=== PATIENT | female | born 1945 | race Caucasian/White ===

== ENCOUNTER → 2018-09-17 08:32 | Outpatient (CLI) | payer MEDICARE, BC, SELFPAY ==
[2018-09-17 09:36] LABS: Add Manual Diff / Slide Review NO; Basophils Percent Auto 0.7 % (0-2); Eosinophils Percent Auto 2.3 % (2-4); Hematocrit 43.3 % (36-46); Hemoglobin 14.8 g/dL (12.0-16.0); Lymphocytes Percent Auto 28.1 % (25-40); Mean Corpuscular HGB Conc 34.3 % (30-36); Mean Corpuscular Hemoglobin 30.7 PG (26-34); Mean Corpuscular Volume 89.6 fL (80-100); Monocytes Percent Auto 8.5 % (3-14); Neutrophils Absolute Auto 5200 /uL (3000-5900); Neutrophils Percent Auto 60.4 % (50-75); Platelet Count 198 X10^3/uL (150-400); Red Blood Cell Count 4.83 X10^6/uL (4.0-5.2); Red Cell Distribution Width 13.8 % (11.6-14.8); White Blood Cell Count 8.7 X10^3/uL (4.5-11.0)
[2018-09-17 09:52] LABS: Hemoglobin A1C% w Est Avg Glu 9.6 % (4.0-6.0)
[2018-09-17 09:54] LABS: Alanine Aminotransferase 31 IU/L (9-52); Albumin 4.5 g/dL (3.5-5.0); Albumin Globulin Ratio 1.6 (1.0-2.8); Alkaline Phosphatase 87 U/L (38-126); Aspartate Aminotransferase 25 IU/L (14-36); Bilirubin Total 0.5 mg/dL (0.2-1.3); Blood Urea Nitrogen 13 mg/dL (7-17); Calcium 9.3 mg/dL (8.4-10.2); Carbon Dioxide 24 mmol/L (22-32); Chloride 100 mmol/L (98-107); Cholesterol 204 mg/dL (140-199); Estimated Glomerular Filt Rate > 60.0 mL/min (>60); Globulin 2.9 g/dL (1.7-4.1); Glucose 272 mg/dL (80-110); HDL Cholesterol 34 mg/dL (40-60); HEMOLYSIS < 15 (0-50); LDL Cholesterol Calculated 107 mg/dL (<100); Sodium 139 mmol/L (137-145); Total Protein 7.4 g/dL (6.3-8.2); Triglycerides 317 mg/dL (35-150)
== END ==
PROVIDERS: PCP Family Medicine; Visit Provider Family Medicine
DX: E03.9 Hypothyroidism, unspecified (principal); E11.9 Type 2 diabetes mellitus without complications; E78.5 Hyperlipidemia, unspecified; I10 Essential (primary) hypertension
CPT/HCPCS: 36415; 80053; 80061; 83036; 84443; 85025

== ENCOUNTER → 2018-12-18 11:58 | Outpatient (CLI) | payer MEDICARE, BC, SELFPAY ==
--- NOTE | 2018-12-18 | DI.MG.S_ITS ---
BILATERAL DIGITAL SCREENING MAMMOGRAM 3D/2D WITH CAD: 12/18/2018 CLINICAL: Routine screening. Comparison is made to exams dated: 09/08/2017 mammogram, 06/10/2016 mammogram, and 03/07/2015 mammogram - [facility]. There are scattered fibroglandular elements in both breasts. Current study was also evaluated with a Computer Aided Detection (CAD) system. No significant masses, calcifications, or other findings are seen in either breast. There has been no significant interval change. IMPRESSION: NEGATIVE There is no mammographic evidence of malignancy. A 1 year screening mammogram is recommended. This exam was interpreted at Station ID: [id number]. NOTE: For mammograms, a report in lay terms will be sent to the patient. Approximately 15% of breast malignancies will not be visualized mammographically. In the management of a palpable breast mass, a negative mammogram must not discourage biopsy of a clinically suspicious lesion. Electronically Signed By: Cristian billings/radha:12/18/2018 16:54:35 copy to: Dread Menezes letter sent: Normal Exam ACR BI-RADS Category 1: Negative [id number]
== END ==
PROVIDERS: PCP Family Medicine; Visit Provider Family Medicine
DX: Z12.31 Encounter for screening mammogram for malignant neoplasm of breast (principal)
CPT/HCPCS: 77063; 77067

== ENCOUNTER → 2018-12-25 08:35 | Outpatient (CLI) | payer MEDICARE, BC, SELFPAY ==
[2018-12-25 09:45] LABS: Hemoglobin A1C% w Est Avg Glu 9.7 % (4.0-6.0)
[2018-12-25 09:51] LABS: Cholesterol 217 mg/dL (140-199); HDL Cholesterol 38 mg/dL (40-60); LDL Cholesterol Calculated 107 mg/dL (<100); Triglycerides 362 mg/dL (35-150)
== END ==
PROVIDERS: PCP Family Medicine; Visit Provider Family Medicine
DX: E11.9 Type 2 diabetes mellitus without complications (principal)
CPT/HCPCS: 36415; 80061; 83036

== ENCOUNTER → 2019-04-05 07:53 | Outpatient (CLI) | payer MEDICARE, BC, SELFPAY ==
[2019-04-05 09:29] LABS: Hemoglobin A1C% w Est Avg Glu 10.2 % (4.0-6.0)
[2019-04-05 09:35] LABS: Cholesterol 256 mg/dL (140-199); HDL Cholesterol 33 mg/dL (40-60); Triglycerides 420 mg/dL (35-150)
== END ==
PROVIDERS: PCP Family Medicine; Visit Provider Family Medicine
DX: E11.9 Type 2 diabetes mellitus without complications (principal)
CPT/HCPCS: 36415; 80061; 83036

== ENCOUNTER → 2019-07-14 07:45 | Outpatient (CLI) | payer MEDICARE, BC, SELFPAY ==
[2019-07-14 08:54] LABS: Hemoglobin A1C% w Est Avg Glu 9.4 % (4.0-6.0)
[2019-07-14 09:13] LABS: Blood Urea Nitrogen 11 mg/dL (7-17); Calcium 9.7 mg/dL (8.4-10.2); Carbon Dioxide 26 mmol/L (22-32); Chloride 99 mmol/L (98-107); Cholesterol 170 mg/dL (140-199); Estimated Glomerular Filt Rate > 60.0 mL/min (>60); Glucose 263 mg/dL (80-110); HDL Cholesterol 31 mg/dL (40-60); HEMOLYSIS < 15 (0-50); LDL Cholesterol Calculated 75 mg/dL (<100); Potassium 4.1 mmol/L (3.4-5.1); Sodium 137 mmol/L (137-145); Triglycerides 320 mg/dL (35-150)
== END ==
PROVIDERS: PCP Family Medicine; Visit Provider Family Medicine
DX: E11.9 Type 2 diabetes mellitus without complications (principal)
CPT/HCPCS: 36415; 80048; 80061; 83036

== ENCOUNTER → 2019-08-06 15:45 | Outpatient (CLI) | payer MEDICARE, BC, SELFPAY ==
--- NOTE | 2019-08-06 15:48 | DI.MRI.S_ITS ---
PROCEDURE: MR LUMBAR SPINE WO CON INDICATIONS: Low back pain TECHNIQUE: Noncontrast sagittal T1 spin echo and T2 fast echo, sagittal STIR, axial T1 and T2 fast spin echo through the lumbar spine. In cases with scoliosis, additional coronal T2 fast spin echo may be performed. COMPARISON: [facility], CR, ABDOMEN ACUTE SERIES, 05/14/2017, 10:33. [facility], MR, L-SPINE WITHOUT CONTRAST, 12/05/2015, 19:28. FINDINGS: Partially degraded by motion artifact. Image quality: Excellent. Alignment and Curvature: 5 lumbar type vertebral bodies are present via plain film. Bone Marrow: Marrow is of normal overall signal. No acute vertebral body compression fractures. Moderate reactive signal within the endplates adjacent to the L2-L3 and L3-L4 intervertebral discs. Mild reactive signal within the endplates adjacent to the L4-L5 and L5-S1 intervertebral discs. Spinal Cord: Conus medullaris terminates at the lower L1 level. Visualized cord demonstrates normal signal and size. Paraspinous Soft Tissues: No paravertebral masses. L1-L2: Mild disc height loss and desiccation. Mild diffuse disc bulge. Mild canal stenosis. No foraminal stenosis. No change. L2-L3: Severe disc height loss and desiccation. Moderate diffuse disc bulge with small superimposed broad based right far lateral protrusion/osteophyte. Moderate facet and ligamentum flavum hypertrophy. Mild epidural lipomatosis. Increased, severe canal stenosis. No change in mild right greater than left foraminal stenosis. L3-L4: Severe disc height loss and desiccation. Moderate diffuse disc bulge/osteophyte. Moderate facet and ligamentum flavum hypertrophy bilaterally. Increased, severe canal stenosis. No change in mild right and moderate left foraminal stenosis. L4-L5: Moderate disc height loss and desiccation. Moderate diffuse disc bulge. Moderate facet and ligamentum flavum hypertrophy. Mild epidural lipomatosis. Increased, severe canal stenosis. No change in mild bilateral foraminal stenosis. L5-S1: Moderate disc height loss and desiccation. Moderate diffuse disc bulge with superimposed left paracentral protrusion. Epidural lipomatosis. Increased, severe canal stenosis. No change in mild bilateral foraminal stenosis. IMPRESSION: 1. Multilevel degenerative disc and facet disease, as well as ligamentum flavum hypertrophy and epidural lipomatosis. 2. Multilevel canal stenoses, worst at L2-L3, L3-L4, L4-L5, and L5-S1, where there are increased, severe canal stenoses. 3. Multilevel foraminal stenoses, worst at L3-L4 on the left where there is moderate foraminal stenosis. Dictated by: Eric Georges M.D. on 08/06/2019 at 16:32 Approved by: Eric Georges M.D. on 08/06/2019 at 16:38
== END ==
PROVIDERS: PCP Family Medicine; Visit Provider Physical Medicine & Rehabilitation
DX: M54.5 Low back pain (principal); M51.36 Other intervertebral disc degeneration, lumbar region; M51.37 Other intervertebral disc degeneration, lumbosacral region; M48.061 Spinal stenosis, lumbar region without neurogenic claudication; M48.07 Spinal stenosis, lumbosacral region; E88.2 Lipomatosis, not elsewhere classified
CPT/HCPCS: 72148

== ENCOUNTER → 2019-12-06 08:11 | Outpatient (CLI) | payer MEDICARE, BC, SELFPAY ==
[2019-12-06 09:43] LABS: Alanine Aminotransferase 18 IU/L (<35); Albumin 4.7 g/dL (3.5-5.0); Albumin Globulin Ratio 1.4 (1.0-2.8); Alkaline Phosphatase 61 U/L (38-126); Aspartate Aminotransferase 25 IU/L (14-36); BUN Creatinine Ratio 31.7 (6-22); Bilirubin Total 0.6 mg/dL (0.2-1.3); Blood Urea Nitrogen 19 mg/dL (7-17); Calcium 9.9 mg/dL (8.4-10.2); Carbon Dioxide 27 mmol/L (22-32); Chloride 101 mmol/L (98-107); Estimated Glomerular Filt Rate > 60.0 mL/min (>60); Globulin 3.3 g/dL (1.7-4.1); Glucose 252 mg/dL (80-110); HEMOLYSIS < 15 (0-50); Potassium 4.4 mmol/L (3.4-5.1); Sodium 138 mmol/L (137-145)
[2019-12-06 09:47] LABS: Hemoglobin A1C% w Est Avg Glu 9.9 % (4.0-6.0)
== END ==
PROVIDERS: PCP Family Medicine; Visit Provider Family Medicine
DX: E11.9 Type 2 diabetes mellitus without complications (principal)
CPT/HCPCS: 36415; 80053; 83036

== ENCOUNTER → 2020-05-08 08:05 | Outpatient (CLI) | payer MEDICARE, BC, SELFPAY ==
[2020-05-08 09:59] LABS: Add Manual Diff / Slide Review NO; Basophils Absolute Auto 100 /uL (0-100); Basophils Percent Auto 0.7 % (0-2); Eosinophils Absolute Auto 200 /uL (0-450); Eosinophils Percent Auto 2.2 % (2-4); Hematocrit 41.9 % (36-46); Hemoglobin 14.6 g/dL (12.0-16.0); Lymphocytes Absolute Auto 2500 /uL (1100-4500); Mean Corpuscular HGB Conc 34.8 % (30-36); Mean Corpuscular Hemoglobin 31.5 PG (26-34); Mean Corpuscular Volume 90.4 fL (80-100); Monocytes Absolute Auto 700 /uL (0-900); Monocytes Percent Auto 8.5 % (3-14); Neutrophils Absolute Auto 4400 /uL (1500-7000); Neutrophils Percent Auto 56.6 % (50-75); Platelet Count 191 X10^3/uL (150-400); Red Blood Cell Count 4.63 X10^6/uL (4.0-5.2); Red Cell Distribution Width 13.9 % (11.6-14.8); White Blood Cell Count 7.8 X10^3/uL (4.5-11.0)
[2020-05-08 10:04] LABS: Hemoglobin A1C% w Est Avg Glu 9.3 % (4.0-6.0)
[2020-05-08 10:25] LABS: Alanine Aminotransferase 19 IU/L (<35); Albumin 4.1 g/dL (3.5-5.0); Albumin Globulin Ratio 1.4 (1.0-2.8); Alkaline Phosphatase 68 U/L (38-126); Aspartate Aminotransferase 25 IU/L (14-36); BUN Creatinine Ratio 21.7 (6-22); Bilirubin Total 0.5 mg/dL (0.2-1.3); Blood Urea Nitrogen 13 mg/dL (7-17); Calcium 9.5 mg/dL (8.4-10.2); Carbon Dioxide 23 mmol/L (22-32); Chloride 100 mmol/L (98-107); Cholesterol 183 mg/dL (140-199); Estimated Glomerular Filt Rate > 60.0 mL/min (>60); Glucose 268 mg/dL (80-110); HDL Cholesterol 32 mg/dL (40-60); HEMOLYSIS < 15 (0-50); LDL Cholesterol Calculated 81 mg/dL (<100); Potassium 4.1 mmol/L (3.4-5.1); Sodium 134 mmol/L (137-145); Total Protein 7.1 g/dL (6.3-8.2); Triglycerides 349 mg/dL (35-150)
[2020-05-08 10:49] LABS: Thyroid Stimulating Hormone 1.56 uIU/mL (0.47-4.68)
== END ==
PROVIDERS: PCP Family Medicine; Referring Provider Family Medicine; Visit Provider Family Medicine
DX: E11.9 Type 2 diabetes mellitus without complications (principal); E03.9 Hypothyroidism, unspecified
CPT/HCPCS: 36415; 80053; 80061; 83036; 84443; 85025

== ENCOUNTER → 2020-05-10 10:19 | Outpatient (CLI) | payer MEDICARE, BC, SELFPAY ==
[2020-05-10 12:58] LABS: Creatinine Urine Random 53.5 mg/dL
[2020-05-10 13:01] LABS: Microalbumi Creatinin Ratio Ur 11.2 ug/mg CR (<30); Microalbumin Urine Random < 0.6 mg/dL (0-1.6)
== END ==
PROVIDERS: PCP Family Medicine; Referring Provider Family Medicine; Visit Provider Family Medicine
DX: E11.9 Type 2 diabetes mellitus without complications (principal)
CPT/HCPCS: 82043; 82570

== ENCOUNTER → 2020-05-12 14:43 | Outpatient (CLI) | payer MEDICARE, BC, SELFPAY ==
--- NOTE | 2020-05-12 14:46 | DI.RAD.S_ITS ---
PROCEDURE: XR CHEST 2V INDICATIONS: Cough cough TECHNIQUE: 2 views of the chest were acquired. COMPARISON: [facility], , ABDOMEN ACUTE SERIES, 05/14/2017, 10:33. [facility], , CHEST 2 VIEW, 01/26/2016, 12:18. FINDINGS: Surgical changes and devices: None. Lungs and pleura: Scattered atelectasis. There are increased ill-defined subtle ground glass opacities bilaterally.. No pleural effusions or pneumothorax. Mediastinum: Mediastinal contours are normal. Heart size is normal. Bones and chest wall: No suspicious bony abnormalities. Soft tissues appear unremarkable. IMPRESSION: Diffuse increased bilateral patchy and ill-defined groundglass opacities raise the possibility of viral or atypical pneumonia. Please correlate clinically. No focal consolidation. Technically, mild pulmonary edema is in the differential. If there is persistent clinical diagnostic uncertainty, continued surveillance with short interval chest radiographs after treatment is recommended. Dictated by: Ruben Rios M.D. on 05/12/2020 at 15:51 Approved by: Ruben Rios M.D. on 05/12/2020 at 15:52
== END ==
PROVIDERS: PCP Family Medicine; Referring Provider Family Medicine; Visit Provider Family Medicine
DX: J40 Bronchitis, not specified as acute or chronic (principal); R05 Cough
CPT/HCPCS: 71046

== ENCOUNTER → 2020-05-14 11:13 | Outpatient (CLI) | payer MEDICARE, BC, SELFPAY ==
[2020-05-14 12:34] LABS: COVID19 -Nasal RAPID Negative (Negative)
== END ==
PROVIDERS: PCP Family Medicine; Visit Provider Physician Assistant
DX: Z11.59 Encounter for screening for other viral diseases (principal)
CPT/HCPCS: 87635

== ENCOUNTER → 2020-06-06 12:04 | Outpatient (CLI) | payer MEDICARE, BC, SELFPAY ==
--- NOTE | 2020-06-06 12:05 | DI.RAD.S_ITS ---
PROCEDURE: XR CHEST 2V INDICATIONS: Follow up TECHNIQUE: 2 views of the chest were acquired. COMPARISON: [facility], CR, XR CHEST 2V, 05/12/2020, 14:37. FINDINGS: Surgical changes and devices: Cholecystectomy clips. Lungs and pleura: Patchy, ill-defined ground-glass opacities and interstitial prominence involving the lungs as diminished compared to May 12, 2020 without complete resolution. No pleural effusions or pneumothorax. Mediastinum: Mediastinal contours are normal. Heart size is normal. Bones and chest wall: No suspicious bony abnormalities. Soft tissues appear unremarkable. IMPRESSION: Diminished bilateral ill-defined ground-glass opacities and interstitial prominence likely representing resolving viral or atypical pneumonia. Dictated by: Helena Yee MD, PhD on 06/06/2020 at 18:00 Approved by: Helena Yee MD, PhD on 06/06/2020 at 18:02
== END ==
PROVIDERS: PCP Family Medicine; Referring Provider Family Medicine; Visit Provider Family Medicine
DX: J40 Bronchitis, not specified as acute or chronic (principal); R07.89 Other chest pain
CPT/HCPCS: 71046

== ENCOUNTER → 2020-08-15 08:11 | Outpatient (CLI) | payer MEDICARE, BC, SELFPAY ==
[2020-08-15 09:58] LABS: BUN Creatinine Ratio 13.3 (6-22); Blood Urea Nitrogen 8 mg/dL (7-17); Calcium 9.3 mg/dL (8.4-10.2); Carbon Dioxide 26 mmol/L (22-32); Chloride 101 mmol/L (98-107); Estimated Glomerular Filt Rate > 60.0 mL/min (>60); Glucose 265 mg/dL (80-110); HEMOLYSIS < 15 (0-50); Potassium 4.6 mmol/L (3.4-5.1); Sodium 136 mmol/L (137-145)
[2020-08-15 10:52] LABS: Hemoglobin A1C% w Est Avg Glu 9.4 % (4.0-6.0)
== END ==
PROVIDERS: PCP Family Medicine; Referring Provider Family Medicine; Visit Provider Family Medicine
DX: E11.9 Type 2 diabetes mellitus without complications (principal)
CPT/HCPCS: 36415; 80048; 83036

== ENCOUNTER → 2020-08-28 10:00 | Outpatient (CLI) | payer MEDICARE, BC, SELFPAY ==
[2020-08-28 10:57] LABS: Bacteria Urine Many (>30); Culture Indicated Urine Cult Not Indicated; RBC Urine 1-5/HPF (0-5/HPF); Squamous Epithelial Cell Urine 5-10 /HPF (0-5/HPF); WBC Urine >100/HPF (0-5/HPF)
== END ==
PROVIDERS: PCP Family Medicine; Referring Provider Family Medicine; Visit Provider Family Medicine
DX: R10.9 Unspecified abdominal pain (principal); R30.0 Dysuria
CPT/HCPCS: 81015

== ENCOUNTER → 2020-10-24 08:15 | Outpatient (CLI) | payer MEDICARE, BC, SELFPAY ==
--- NOTE | 2020-10-24 08:17 | DI.RAD.S_ITS ---
PROCEDURE: XR CHEST 2V INDICATIONS: Follow-up cough TECHNIQUE: 2 views of the chest were acquired. COMPARISON: , CR, XR CHEST 2V, 05/12/2020, 14:37. , CR, XR CHEST 2V, 06/06/2020, 11:59. FINDINGS: Surgical changes and devices: None. Lungs and pleura: Mild interstitial infiltrates in the left lower lobe. No focal consolidation or pleural effusion. There is a 2 cm nodular density in the left lower lung zone seen on the frontal view only, new since 06/06/2020. No pleural effusions or pneumothorax. Mediastinum: Mediastinal contours are normal. Heart size is normal. Bones and chest wall: No suspicious bony abnormalities. Soft tissues appear unremarkable. IMPRESSION: 1. Infiltrate in the left lower lobe suspicious for developing pneumonia. 2. A 2 cm nodular density in the left lower lung zone seen on the frontal view only. This was not present on 06/06/2020. It may be caused by an artifact . Nevertheless, a short-term follow-up chest x-ray is suggested. Dictated by: Ro García M.D. on 10/24/2020 at 9:43 Approved by: Ro García M.D. on 10/24/2020 at 9:47
[2020-10-24 09:32] LABS: BUN Creatinine Ratio 23.6 (6-22); Blood Urea Nitrogen 13 mg/dL (7-17); Calcium 9.1 mg/dL (8.4-10.2); Carbon Dioxide 26 mmol/L (22-32); Chloride 103 mmol/L (98-107); Estimated Glomerular Filt Rate > 60.0 mL/min (>60); Glucose 228 mg/dL (80-110); HEMOLYSIS < 15 (0-50); Potassium 4.2 mmol/L (3.4-5.1); Sodium 136 mmol/L (137-145)
[2020-10-24 09:41] LABS: Hemoglobin A1C% w Est Avg Glu 9.4 % (4.0-6.0)
== END ==
PROVIDERS: PCP Family Medicine; Referring Provider Family Medicine; Visit Provider Family Medicine
DX: R05 Cough (principal); E11.9 Type 2 diabetes mellitus without complications
CPT/HCPCS: 36415; 71046; 80048; 83036

== ENCOUNTER → 2020-10-26 14:41 | Outpatient (CLI) | payer MEDICARE, BC, SELFPAY | PROVIDERS: PCP Family Medicine; Visit Provider Family Medicine | DX: Z87.440 Personal history of urinary (tract) infections (principal) | CPT/HCPCS: 87086 ==

== ENCOUNTER → 2020-12-14 12:32 | Outpatient (CLI) | payer MEDICARE, BC, SELFPAY ==
[2020-12-14] MEDS: COVID-19 VACC #1, MRNA(MOD) 100 MCG/0.5 ML VIAL IM (12:34)
== END ==
PROVIDERS: PCP Family Medicine; Visit Provider Internal Medicine
DX: Z23 Encounter for immunization (principal)
CPT/HCPCS: 0011A; 91301

== ENCOUNTER → 2020-12-19 15:21 | Outpatient (CLI) | payer MEDICARE, BC, SELFPAY | PROVIDERS: PCP Family Medicine; Visit Provider Specialist | DX: R30.0 Dysuria (principal) | CPT/HCPCS: 51701; 87086 ==

== ENCOUNTER → 2021-01-11 12:07 | Outpatient (CLI) | payer MEDICARE, BC, SELFPAY ==
[2021-01-11] MEDS: COVID-19 VACC #2, MRNA(MOD) 100 MCG/0.5 ML VIAL IM (12:16)
== END ==
PROVIDERS: PCP Family Medicine; Visit Provider Internal Medicine
DX: Z23 Encounter for immunization (principal)
CPT/HCPCS: 0012A; 91301

== ENCOUNTER → 2021-01-29 07:51 | Outpatient (CLI) | payer MEDICARE, BC, SELFPAY ==
[2021-01-29 08:36] LABS: Hemoglobin A1C% w Est Avg Glu 9.2 % (4.0-6.0)
[2021-01-29 08:47] LABS: Alanine Aminotransferase 23 IU/L (<35); Albumin 4.3 g/dL (3.5-5.0); Albumin Globulin Ratio 1.4 (1.0-2.8); Alkaline Phosphatase 90 U/L (38-126); Aspartate Aminotransferase 26 IU/L (14-36); BUN Creatinine Ratio 34.4 (6-22); Bilirubin Total 0.4 mg/dL (0.2-1.3); Blood Urea Nitrogen 21 mg/dL (7-17); Calcium 9.2 mg/dL (8.4-10.2); Carbon Dioxide 26 mmol/L (22-32); Chloride 101 mmol/L (98-107); Creatinine Urine Random 77.1 mg/dL; Estimated Glomerular Filt Rate > 60.0 mL/min (>60); Globulin 3.1 g/dL (1.7-4.1); Glucose 291 mg/dL (80-110); HEMOLYSIS < 15 (0-50); Potassium 4.4 mmol/L (3.4-5.1); Sodium 135 mmol/L (137-145); Total Protein 7.4 g/dL (6.3-8.2)
[2021-01-29 09:15] LABS: Microalbumi Creatinin Ratio Ur 46.6 ug/mg CR (<30); Microalbumin Urine Random < 3.6 mg/dL (0-1.6)
[2021-01-29 09:31] LABS: TSH w/ Reflex to FT4 1.77 uIU/mL (0.47-4.68)
== END ==
PROVIDERS: PCP Family Medicine; Referring Provider Family Medicine; Visit Provider Family Medicine
DX: E11.9 Type 2 diabetes mellitus without complications (principal); I10 Essential (primary) hypertension; Z79.4 Long term (current) use of insulin; E03.9 Hypothyroidism, unspecified
CPT/HCPCS: 36415; 80053; 82043; 82570; 83036; 84443

== ENCOUNTER → 2021-02-06 12:43 | Outpatient (CLI) | payer MEDICARE, BC, SELFPAY ==
--- NOTE | 2021-02-06 12:44 | DI.CT.S_ITS ---
PROCEDURE: CT CHEST WO CON INDICATIONS: Abnormal and persistent chest x-ray in former smoker TECHNIQUE: Noncontrast 5 mm thick sections acquired from the pulmonary apices to the posterior costophrenic angles. 1 mm lung window, 5 mm thick coronal and sagittal and 7 mm axial MIP reformats were then acquired. For radiation dose reduction, the following was used: automated exposure control, adjustment of mA and/or kV according to patient size. COMPARISON: [facility], CR, XR CHEST 2V, 06/06/2020, 11:59. [facility], CR, XR CHEST 2V, 05/12/2020, 14:37. [facility], CT, HEAD AND NECK ANGIO, 02/19/2016, 13:42. [facility], CR, XR CHEST 2V, 10/24/2020, 8:28. FINDINGS: Image quality: Excellent. Scattered subsegmental atelectasis and/or scarring. No focal consolidation. No pleural effusions or pneumothorax. Airway thickening in keeping with nonspecific bronchitis and/or reactive airways disease. 4 mm nodule seen in the subpleural left upper lobe posteriorly on image 43. This appears unchanged since 02/19/16. No definite correlate to the radiographic nodular opacity seen on the prior study from 10/24/20. Mediastinum: Heart size is normal. Coronary artery calcifications are present. No pericardial effusion. No mediastinal adenopathy by size criteria. Thoracic aorta and central pulmonary arteries are normal in size. Esophagus is normal in caliber. No hiatal hernia. Bones and chest wall: No suspicious bony lesions. No vertebral body compression fractures. No axillary or supraclavicular adenopathy by size criteria. Thyroid is grossly unremarkable Abdomen: Visualized upper abdominal solid organs and bowel loops appear normal in the absence of contrast. IMPRESSION: No definite correlate to the radiographically visualized nodular opacity seen on the prior study. Scattered subsegmental atelectasis and/or scarring. No focal consolidation. Additional chronic and incidental findings as above. Dictated by: Ruben Rios M.D. on 02/06/2021 at 15:17 Approved by: Ruben Rios M.D. on 02/06/2021 at 15:42
== END ==
PROVIDERS: PCP Family Medicine; Referring Provider Family Medicine; Visit Provider Family Medicine
DX: R93.89 Abnormal findings on diagnostic imaging of other specified body structures (principal); R91.1 Solitary pulmonary nodule; I25.10 Atherosclerotic heart disease of native coronary artery without angina pectoris; Z87.891 Personal history of nicotine dependence
CPT/HCPCS: 71250

== ENCOUNTER → 2021-03-22 16:18 | Outpatient (CLI) | payer MEDICARE, BC, SELFPAY ==
--- NOTE | 2021-03-22 | DI.MG.S_ITS ---
BILATERAL DIGITAL SCREENING MAMMOGRAM 3D/2D WITH CAD: 03/22/2021 CLINICAL: Routine screening. Comparison is made to exams dated: 12/18/2018 mammogram, 09/08/2017 mammogram, and 06/10/2016 mammogram - [facility]. There are scattered fibroglandular elements in both breasts. Current study was also evaluated with a Computer Aided Detection (CAD) system. There is an oval equal density focal asymmetry with an indistinct margin in the right breast at 11 o'clock anterior depth. There is an irregular low density asymmetry with an indistinct margin in the left breast posterior depth inferior region seen on the mediolateral oblique view only. No other significant masses or calcifications are seen in either breast. IMPRESSION: INCOMPLETE: NEEDS ADDITIONAL IMAGING EVALUATION The oval equal density focal asymmetry in the right breast at 11 o'clock anterior depth is indeterminate. Mediolateral and spot compression views as well as additional views with possible ultrasound are recommended. The irregular low density asymmetry in the left breast posterior depth inferior region seen on the mediolateral oblique view only is indeterminate. Mediolateral and spot compression views as well as additional views with possible ultrasound are recommended. This exam was interpreted at Station ID: [id number]. NOTE: For mammograms, a report in lay terms will be sent to the patient. Approximately 15% of breast malignancies will not be visualized mammographically. In the management of a palpable breast mass, a negative mammogram must not discourage biopsy of a clinically suspicious lesion. Electronically Signed By: Cristian billings/radha:03/22/2021 17:06:48 letter sent: Additional Imaging Needed ACR BI-RADS Category 0: Incomplete 3340F
== END ==
PROVIDERS: PCP Family Medicine; Referring Provider Family Medicine; Visit Provider Family Medicine
DX: Z12.31 Encounter for screening mammogram for malignant neoplasm of breast (principal)
CPT/HCPCS: 77063; 77067

== ENCOUNTER → 2021-04-04 09:19 | Outpatient (CLI) | payer MEDICARE, BC, SELFPAY ==
--- NOTE | 2021-04-04 09:20 | DI.US.S_ITS ---
ULTRASOUND OF RIGHT BREAST: 04/04/2021 CLINICAL: Patient returns today to evaluate a focal asymmetry in the right breast. Comparison is made to exams dated: 04/04/2021 mammogram, 03/22/2021 mammogram, 12/18/2018 mammogram, and 09/08/2017 mammogram - [facility]. Doppler ultrasound of the right breast was performed. Foster scale images of the real-time examination were reviewed. There is a 1.3 cm x 0.5 cm oval mass with an indistinct and non-circumscribed margin in the right breast at 9 o'clock posterior depth 4 cm from the nipple. This oval mass is hypoechoic with no posterior acoustic shadowing or enhancement. There also is a 0.7 cm x 0.8 cm x 0.5 cm oval mass with an indistinct and non-circumscribed margin in the right breast at 9 o'clock posterior depth 3 cm from the nipple. IMPRESSION: SUSPICIOUS OF MALIGNANCY The 1.3 cm x 0.5 cm oval mass in the right breast at 9 o'clock posterior depth is at a low suspicion for malignancy. An ultrasound guided biopsy is recommended. The 0.7 cm x 0.8 cm x 0.5 cm oval mass in the right breast at 9 o'clock posterior depth is at a low suspicion for malignancy. An ultrasound guided biopsy is recommended. These findings and recommendation were discussed with the patient by Dr Rios. This exam was interpreted at Station ID: [id number]. Electronically Signed By: Pierre Zamora acr/:04/04/2021 12:25:36 letter sent: Biopsy Required Ultrasound BI-RADS: 4a Low suspicion for malignancy
--- NOTE | 2021-04-04 09:35 | DI.MG.S_ITS ---
At the request of: HENRY VALENTINE Procedure: MM diagnostic mammo BI BILATERAL DIGITAL DIAGNOSTIC MAMMOGRAM 3D/2D WITH ADDITIONAL VIEWS: 04/04/2021 CLINICAL: Additional evaluation requested from prior study. Comparison is made to exams dated: 03/22/2021 mammogram, 12/18/2018 mammogram, and 09/08/2017 mammogram - [facility]. There are scattered fibroglandular elements in both breasts. There is an oval equal density focal asymmetry with an indistinct margin in the right breast at 11 o'clock anterior depth. This is seen in additional views. This is not significantly changed. The benign irregular low density asymmetry with an indistinct margin in the left breast posterior depth inferior region seen on the mediolateral oblique view only is no longer seen. This is not seen in additional views. No other significant masses or calcifications are seen in either breast. IMPRESSION: INCOMPLETE: NEEDS ADDITIONAL IMAGING EVALUATION The oval equal density focal asymmetry in the right breast at 11 o'clock anterior depth is indeterminate. An ultrasound is recommended. The left asymmetry resolves on additional views and is benign. This exam was interpreted at Station ID: [id number]. NOTE: For mammograms, a report in lay terms will be sent to the patient. Approximately 15% of breast malignancies will not be visualized mammographically. In the management of a palpable breast mass, a negative mammogram must not discourage biopsy of a clinically suspicious lesion. Electronically Signed By: Pierre Zamora acr/:04/04/2021 11:10:04 letter sent: Need Ultrasound ACR BI-RADS Category 0: Incomplete 3340F
== END ==
PROVIDERS: PCP Family Medicine; Referring Provider Family Medicine; Visit Provider Family Medicine
DX: R92.8 Other abnormal and inconclusive findings on diagnostic imaging of breast (principal); N63.15 Unspecified lump in the right breast, overlapping quadrants
CPT/HCPCS: 76642; 77066; G0279

== ENCOUNTER → 2021-04-18 13:58 | Outpatient (CLI) | payer MEDICARE, BC, SELFPAY ==
--- NOTE | 2021-04-18 | PATH_ITS ---
[facility] Accession Number: [id number] . 01 Material submitted: . breast - RIGHT BREAST MASS 9:00 4CM FN . 01 Diagnosis: A. Right Breast Mass, 9 o'clock, 4 cm from the Nipple: Breast parenchyma with fibrocystic change including nodular stromal fibrosis, usual ductal hyperplasia, focal pseudoangiomatous hyperplasia, cystic duct dilatation, and focal apocrine metaplasia. Focal microcalcifications are present. Negative for atypia, carcinoma in situ, and malignancy. [facility] 04/23/2021 0903 Local . 01 Comment: Clinical and radiographic correlation is necessary. . 01 Electronically signed: . Merle Lemons MD, Pathologist NPI- [id number] . 01 Gross description: . Received one formalin-filled container, labeled with the patient's name and labeled right breast #1 4 cm FN. The specimen is received with a plastic filter in container, sample loose in container and consists of multiple fragments of yellow-elias soft tissue which range in size from less than 0.1 cm to 1.5 x 0.5 x 0.4 cm. The specimen is filtered, wrapped, and entirely submitted in one cassette. Possible collection date and time per requisition: 04/18/21 at 1602. Total fixation time: Approximately 12 hours. (DC:[id number]) /[facility] 04/19/2021 0221 Local . 01 Microscopic: . CK 5/6 and ER immunostains are performed on block A1 in order to assess the areas of ductal hyperplasia for atypia. In addition, a small focus is evaluated for lobular neoplasia with beta-catenin and e-cadherin immunostains. Additional H/E sections are obtained. The immunohistochemical findings are as follows: . CK 5/6: Mosaic pattern within areas of interest, in support of usual ductal hyperplasia. Estrogen receptor: Mosaic pattern within areas of interest, in support of usual ductal hyperplasia. Beta-catenin: Membranous staining pattern, excluding lobular neoplasia. E-cadherin: Membranous staining pattern, excluding lobular neoplasia. . * This test was developed and its performance characteristics determined by [employer]. It has not been cleared or approved by the U.S. Food and Drug Administration. The FDA has determined that such clearance or approval is not necessary. This test is used for clinical purposes. It should not be regarded as investigational or for research. . 01 Pathologist provided ICD-10: N63.10 . 01 CPT . 574212, X08073, Q33909 Performed at: 01 [facility] [address], [place], [place] [id number] MD Cristian Liu MD Phone: [phone]
--- NOTE | 2021-04-18 | PATH_ITS ---
[facility] Accession Number: [id number] . 01 Material submitted: . breast - RT BREAST 9:00 3CM FN . 01 Diagnosis: A. Right Breast, 9 o'clock, 3 cm from the Nipple: Blood clot with portions of blood vessel. Small amount of breast tissue with stromal fibrosis and usual ductal hyperplasia. No evidence of atypia, carcinoma in situ, or malignancy. [facility] 04/23/2021 0851 Local . 01 Comment: Clinical and radiographic correlation is necessary. . 01 Electronically signed: Greta Lemons MD, Pathologist NPI- [id number] . 01 Gross description: . Received one formalin-filled container, labeled with the patient's name and labeled RT breast #2, 3 cm FN. The specimen is received with a plastic filter in container, sample loose in container and consists of multiple fragments of yellow-elias tissue and clotted blood which measure 1.3 x 1.0 x 0.2 cm in aggregate. The specimen is filtered, wrapped, and entirely submitted in one cassette. Possible collection date and time per requisition: 04/18/21 at 1602. Total fixation time: Approximately 12 hours. (DC:[id number]) /[facility] 04/19/2021 0223 Local . 01 Microscopic: . Deeper levels are examined. . 01 Pathologist provided ICD-10: N63.10 . 01 CPT . 341280 Performed at: 01 [facility] [address] [place] [id number] MD Cristian Liu MD Phone: [phone]
--- NOTE | 2021-04-18 | DI.MG.S_ITS ---
UNILATERAL RIGHT DIGITAL DIAGNOSTIC MAMMOGRAM POST-EXCISIONAL BIOPSY: 04/18/2021 CLINICAL: Abnormal Mammogram. Comparison is made to exams dated: 04/04/2021 mammogram, 03/22/2021 mammogram, 12/18/2018 mammogram, and 04/04/2021 [facility]. There are scattered fibroglandular elements in right breast. There is a delon marker clip in the appropriate position in the right breast central to the nipple anterior depth at the biopsy site. There also is a vision marker clip in the appropriate position in the right breast central to the nipple in the retroareolar region at the biopsy site. IMPRESSION: POST PROCEDURE MAMMOGRAM FOR MARKER PLACEMENT There was a successful delon marker clip placement in the right breast central to the nipple anterior depth. There was a successful vision marker clip placement in the right breast central to the nipple in the retroareolar region. This exam was interpreted at Station ID: [id number]. Electronically Signed By: Brian Kimbrough M.D. slc/:04/18/2021 16:29:23 ACR BI-RADS Category Post-procedure mammogram for marker placement
--- NOTE | 2021-04-18 14:00 | DI.US.S_ITS ---
MULTIPLE ULTRASOUND GUIDED BIOPSIES RIGHT BREAST USING VACUUM DEVICE WITH MARKING DEVICES INSERTED AND POST DIGITAL MAMMOGRAPHIC IMAGIN04/18/2021 CLINICAL: Right breast mass x2. PATIENT CONSENT: Risks (minor bleeding, infection, vasovagal reaction and repeat procedure), benefits and alternatives were explained to the patient and written informed consent was obtained. Correlation is made to exams dated: 04/04/2021 ultrasound, 04/04/2021 mammogram, 03/22/2021 mammogram, 12/18/2018 mammogram, 09/08/2017 mammogram, and 06/10/2016 mammogram - [facility]. An ultrasound guided biopsy using real-time ultrasound was performed for the 1.3 cm x 0.9 cm x 0.5 cm oval mass located in the right breast at 9 o'clock anterior depth 4 cm from the nipple. This was described on the previous ultrasound report. The skin was prepped in the usual manner. Local anesthetic was administered to the access site. A skin nehemiah was made in the breast. The abnormality was approached from the lateral aspect. A 10 gauge biopsy needle was placed adjacent to the abnormality under ultrasound guidance. Once the needle was documented to be in the correct location, eight cores were obtained using the Mammotome biopsy system. A vision clip was inserted into the biopsy cavity. A skin adhesive and a sterile dressing were applied to the access site. Post procedure digital mammographic imaging demonstrates the location device at the targeted area. The specimens were sent to the laboratory for pathological analysis. A second ultrasound guided biopsy using real-time ultrasound was performed for the 0.8 cm x 0.7 cm x 0.5 cm oval mass located in the right breast at 9 o'clock anterior depth 3 cm from the nipple. This was described on the previous ultrasound report. The skin was prepped in the usual manner. Local anesthetic was administered to the access site. A skin nehemiah was made in the breast. The abnormality was approached from the lateral aspect. A 13 gauge biopsy needle was placed adjacent to the abnormality under ultrasound guidance. Once the needle was documented to be in the correct location, six cores were obtained using the Mammotome biopsy system. A delon clip was inserted into the biopsy cavity. A skin adhesive and a sterile dressing were applied to the access site. Post procedure digital mammographic imaging demonstrates the location device at the targeted area. The specimens were sent to the laboratory for pathological analysis. IMPRESSION: ULTRASOUND GUIDED BIOPSY BENIGN Ultrasound guided biopsy of the 1.3 cm x 0.9 cm x 0.5 cm mass in the right breast at 9 o'clock anterior depth 4 cm from the nipple was successful with no apparent post procedure complications. Pathology indicates benign apocrine metaplasia (AM), pseudoangiomatous stromal hyperplasia (PSH), fibrocystic changes (FC), and stromal fibrosis. Pathology results are concordant with mammography and ultrasound findings. Ultrasound guided biopsy of the 0.8 cm x 0.7 cm x 0.5 cm mass in the right breast at 9 o'clock anterior depth 3 cm from the nipple was successful with no apparent post procedure complications. Pathology indicates benign usual ductal hyperplasia (DHU) and stromal fibrosis. Pathology results are concordant with mammography and ultrasound findings. Return to annual mammogram screening schedule is recommended. This exam was interpreted at Station ID: [id number]. Brian Angeles M.D. [facility],dd/:04/25/2021 09:44:30
== END ==
PROVIDERS: PCP Family Medicine; Referring Provider Family Medicine; Visit Provider Family Medicine
DX: R92.8 Other abnormal and inconclusive findings on diagnostic imaging of breast (principal); N63.0 Unspecified lump in unspecified breast; N63.10 Unspecified lump in the right breast, unspecified quadrant
CPT/HCPCS: 19083; 19084; 77065

== ENCOUNTER → 2021-07-09 07:51 | Outpatient (CLI) | payer MEDICARE, BC, SELFPAY ==
[2021-07-09 09:00] LABS: Hemoglobin A1C% w Est Avg Glu 8.9 % (4.0-6.0)
== END ==
PROVIDERS: PCP Family Medicine; Referring Provider Family Medicine; Visit Provider Family Medicine
DX: E11.9 Type 2 diabetes mellitus without complications (principal); Z79.4 Long term (current) use of insulin
CPT/HCPCS: 36415; 83036

== ENCOUNTER → 2021-07-26 15:17 | Outpatient (CLI) | payer MEDICARE, BC, SELFPAY | PROVIDERS: PCP Family Medicine; Visit Provider Nurse Practitioner | DX: R30.0 Dysuria (principal); R39.15 Urgency of urination | CPT/HCPCS: 87086 ==

== ENCOUNTER → 2021-08-04 08:14 | Outpatient (CLI) | payer MEDICARE, BC, SELFPAY | PROVIDERS: PCP Family Medicine; Visit Provider Nurse Practitioner Family | DX: R30.9 Painful micturition, unspecified (principal) | CPT/HCPCS: 87086; 87210 ==

== ENCOUNTER → 2021-08-13 16:14 | Outpatient (CLI) | payer MEDICARE, BC, SELFPAY ==
[2021-08-13 18:23] LABS: Alanine Aminotransferase 23 IU/L (<35); Albumin 4.3 g/dL (3.5-5.0); Albumin Globulin Ratio 1.4 (1.0-2.8); Alkaline Phosphatase 85 U/L (38-126); Aspartate Aminotransferase 26 IU/L (14-36); BUN Creatinine Ratio 26.2 (6-22); Bilirubin Total 0.5 mg/dL (0.2-1.3); Blood Urea Nitrogen 16 mg/dL (7-17); Calcium 9.8 mg/dL (8.4-10.2); Carbon Dioxide 25 mmol/L (22-32); Chloride 100 mmol/L (98-107); Estimated Glomerular Filt Rate > 60.0 mL/min (>60); Glucose 248 mg/dL (80-110); HEMOLYSIS < 15 (0-50); Potassium 4.6 mmol/L (3.4-5.1); Sodium 135 mmol/L (137-145); Total Protein 7.3 g/dL (6.3-8.2)
== END ==
PROVIDERS: PCP Family Medicine; Referring Provider Family Medicine; Visit Provider Family Medicine
DX: E11.9 Type 2 diabetes mellitus without complications (principal); I10 Essential (primary) hypertension; Z79.899 Other long term (current) drug therapy
CPT/HCPCS: 36415; 80053

== ENCOUNTER → 2021-08-31 13:46 | Outpatient (CLI) | payer MEDICARE, BC, SELFPAY | PROVIDERS: PCP Family Medicine; Referring Provider Urology; Visit Provider Urology | DX: R39.9 Unspecified symptoms and signs involving the genitourinary system; N39.0 Urinary tract infection, site not specified; R30.0 Dysuria; R31.0 Gross hematuria; Z87.440 Personal history of urinary (tract) infections; Z88.9 Allergy status to unspecified drugs, medicaments and biological substances; Z95.2 Presence of prosthetic heart valve | CPT/HCPCS: 81002; 87077; 87086; 87186; 99215 ==

== ENCOUNTER → 2021-09-17 14:50 | Outpatient (CLI) | payer MEDICARE, BC, SELFPAY ==
[2021-09-17 15:44] LABS: COVID19 -Nasal RAPID Negative (Negative)
== END ==
PROVIDERS: PCP Family Medicine; Visit Provider Nurse Practitioner Family
DX: R05.9 Cough, unspecified (principal)
CPT/HCPCS: 87635

== ENCOUNTER → 2021-09-17 15:11 | Outpatient (CLI) | payer MEDICARE, BC, SELFPAY ==
--- NOTE | 2021-09-17 15:13 | DI.RAD.S_ITS ---
PROCEDURE: XR CHEST 2V INDICATIONS: Cough TECHNIQUE: 2 views of the chest were acquired. COMPARISON: [facility], CT, CT CHEST WO CON, 02/06/2021, 12:50. [facility], CR, XR CHEST 2V, 10/24/2020, 8:28. FINDINGS: Surgical changes and devices: None. Lungs and pleura: Mildly coarsened interstitial markings, unchanged. No consolidation, pleural effusions or pneumothorax. Mediastinum: Mediastinal contours are normal. Heart size is normal. Bones and chest wall: No suspicious bony abnormalities. Ovoid radiodensities project over the left lower ribs, likely reflecting external artifact. IMPRESSION: No acute cardiopulmonary abnormality. Dictated by: Yo Dumont M.D. on 09/17/2021 at 16:11 Approved by: Yo Dumont M.D. on 09/17/2021 at 16:17
== END ==
PROVIDERS: PCP Family Medicine; Referring Provider Nurse Practitioner Family; Visit Provider Nurse Practitioner Family
DX: R05.9 Cough, unspecified (principal)
CPT/HCPCS: 71046; 87635

== ENCOUNTER → 2021-10-02 14:49 | Outpatient (CLI) | payer MEDICARE, BC, SELFPAY ==
[2021-10-02 15:28] LABS: COVID19 -Nasal RAPID Negative (Negative)
== END ==
PROVIDERS: PCP Family Medicine; Referring Provider Urology; Visit Provider Urology
DX: N39.0 Urinary tract infection, site not specified (principal); R39.9 Unspecified symptoms and signs involving the genitourinary system; Z91.041 Radiographic dye allergy status; Z20.822 Contact with and (suspected) exposure to COVID-19
CPT/HCPCS: 81002; 87635; 99215

== ENCOUNTER 2021-10-04 13:27 | Day surgery (SDC) | payer MEDICARE, BC, SELFPAY ==
[2021-09-27 10:39] VITALS: BMI 32.8
[2021-10-04] VITALS (7 sets, daily range): BP systolic 129–156; BP diastolic 51–80; PULSE 58–68; RESP 10–18; TEMP 36.2–36.7; O2SAT 95–98; BMI 32.8
--- NOTE | 2021-10-04 | DI.RAD.S_ITS ---
PROCEDURE: XR ABDOMEN 1V INDICATIONS: BILATERAL RETROGRADE TECHNIQUE: One view of the abdomen acquired. COMPARISON: None. FINDINGS: Fluoroscopic images demonstrate contrast opacifying the bilateral collecting systems. Round filling defects are seen in the left ureter, which may reflect artifact versus calculi. IMPRESSION: Fluoroscopic images obtained during bilateral retrograde pyelogram. Please refer to the procedure note. Dictated by: Yo Dumont M.D. on 10/04/2021 at 16:09 Approved by: Yo Dumont M.D. on 10/04/2021 at 16:13
[2021-10-04] MEDS: LACTATED RINGERS 1,000 ML 42 ML IV (14:00)
--- NOTE | 2021-10-04 14:23 | PM.PREOP ---
Pre-operative Note COVID-19 COVID-19 status: Negative Result date/Date tested (Pos, Neg/Pending): 10/02/21 Interval Note History & Physical reviewed/Exam performed by Physician: Yes Changes to H&P: No
[2021-10-04] MEDS: GENTAMICIN 160 MG in SODIUM CHLORIDE 0.9% 100 ML 104 ML IV (14:47)
--- NOTE | 2021-10-04 15:01 | SUR.OPER ---
Lithotomy on padded OR bed, head on pillow, arms secured on padded arm boards at <90 degrees abduction. Legs secured in padded yellow fins stirrups.
[2021-10-04] MEDS: IOPAMIDOL 15 ML VIAL INJ (15:05)
--- NOTE | 2021-10-04 15:12 | P.OP_ITS ---
Procedure & Clinicians Procedure: Cystoscopy with bilateral retrograde pyelogram Same procedure as scheduled: Yes Indications: This is a 75-year-old female who has a history of recurring urinary tract infections and an allergy to iodinated intravenous contrast. Because of this she presents this time for cystoscopy with bilateral retrograde pyelogram to rule out anatomic abnormality that might predispose to recurring urinary tract infections. Surgeon: Guanaco Lopez Click Yes if Unassisted: Yes Anesthesia Type: General Operative Notes Findings: Findings: External genitalia would appear normal, there is mild introital narrowing. Urethral meatus is normal. Urethra is normal along its length with normal mucosa. The ureteral orifices are normal position with clear efflux. There is mild to moderate trabeculation within the bladder. The mucosa is otherwise normal there are no papillary tumors, stones or evidence of fistula. There is no diverticula. There were no adverse findings at cystoscopy or retrograde pyelogram. The collecting systems right and left were without filling defect irregularity or other abnormality. Both the right and left collecting system drained promptly. On the left there was an artifact created by the introduction of 2 air bubbles which appear on 1 of the films to show a fi lling defect. The to bubbles passed and on subsequent films the absenceof a filling defect was demonstrated. Closure Type: not applicable Specimen(s): none sent Prosthetic devices, grafts, tissues, transplants, or devices: None Estimated Blood Loss (mL): 0 Blood products transfused: none Procedure in detail: Procedure in detail: After informed consent was obtained, the patient was identified brought to the operating room. The patient was then placed in the supine position on the table and anesthesia was induced to maintain. Ensuring an adequate level of anesthesia the patient was transitioned to the lithotomy position. The patient was then prepped, draped and prepared for cystoscopic evaluation in a sterile fashion. After prepping draping and ensuring an adequate level of anesthesia a 21 [place] cystoscope was passed through the urethra and into the bladder where cystoscopy was performed with a 30 and 70 degree lens. The right ureteral orifice was identified and a cone-tip catheter was impacted in the right ureteral orifice the collecting system filled with contrast. Serial images taken after a open fill that is a film without contrast were obtained. Departmental Buyer images were collected via the fluoroscope. Attention was then turned to the left side, and the the cone-tipped catheter was impacted in the left ureteral orifice and collecting system filled with contrast. Serial sales representative facility services images were demonstrated and gathered via the fluoroscope. Each side was then observed for drainage and sales representative facility services images collected. Each side drained promptly without abnormality. With the findings and hand the collecting systems drained. The bladder was drained and the scope removed patient was awakened and taken to postanesthesia care unit having tolerated the procedure well. Patient will be discharged to home to follow up my office in approximately 14 days. There were no complications Complications: none Post-operative Condition: stable Disposition: PACU Plan for aftercare: Patient to follow-up in my office in approximately 14 days.
--- NOTE | 2021-10-04 16:27 | SUR.PHASEII ---
Pt ready to go, ride called and pt left in stable condition.
== END 2021-10-04 16:30 | disposition home or self-care (01) ==
PROVIDERS: PCP Family Medicine; Referring Provider Urology; Visit Provider Urology
PROC: (CPT 52351; principal; 2021-10-04 15:15)
DX: Z87.440 Personal history of urinary (tract) infections (principal); Z91.041 Radiographic dye allergy status; K21.9 Gastro-esophageal reflux disease without esophagitis
CPT/HCPCS: 52351; 74018; 76000; J1100; J2405; J2704; J3010

== ENCOUNTER → 2021-10-15 08:25 | Outpatient (CLI) | payer MEDICARE, BC, SELFPAY ==
[2021-10-15 09:31] LABS: Creatinine Urine Random 113.4 mg/dL
[2021-10-15 09:37] LABS: Hemoglobin A1C% w Est Avg Glu 8.7 % (4.0-6.0)
[2021-10-15 09:38] LABS: Microalbumi Creatinin Ratio Ur 14.1 ug/mg CR (<30); Microalbumin Urine Random 1.6 mg/dL (0-1.6)
[2021-10-15 09:41] LABS: Alanine Aminotransferase 20 IU/L (<35); Albumin 3.9 g/dL (3.5-5.0); Albumin Globulin Ratio 1.5 (1.0-2.8); Alkaline Phosphatase 61 U/L (38-126); Aspartate Aminotransferase 23 IU/L (14-36); Bilirubin Total 0.5 mg/dL (0.2-1.3); Blood Urea Nitrogen 15 mg/dL (7-17); Calcium 9.2 mg/dL (8.4-10.2); Carbon Dioxide 26 mmol/L (22-32); Chloride 101 mmol/L (98-107); Estimated Glomerular Filt Rate > 60.0 mL/min (>60); Globulin 2.6 g/dL (1.7-4.1); Glucose 186 mg/dL (80-110); HEMOLYSIS < 15 (0-50); Potassium 4.2 mmol/L (3.4-5.1); Sodium 137 mmol/L (137-145); Total Protein 6.5 g/dL (6.3-8.2)
== END ==
PROVIDERS: PCP Family Medicine; Referring Provider Family Medicine; Visit Provider Family Medicine
DX: E11.9 Type 2 diabetes mellitus without complications (principal); Z79.4 Long term (current) use of insulin; I10 Essential (primary) hypertension
CPT/HCPCS: 36415; 80053; 82043; 82570; 83036

== ENCOUNTER → 2022-02-05 08:04 | Outpatient (CLI) | payer MEDICARE, BC, SELFPAY ==
[2022-02-05 09:29] LABS: Hemoglobin A1C% w Est Avg Glu 9.4 % (4.0-6.0)
[2022-02-05 09:44] LABS: Alanine Aminotransferase 19 IU/L (<35); Albumin 4.2 g/dL (3.5-5.0); Albumin Globulin Ratio 1.5 (1.0-2.8); Alkaline Phosphatase 61 U/L (38-126); Aspartate Aminotransferase 25 IU/L (14-36); BUN Creatinine Ratio 19.6 (6-22); Bilirubin Total 0.6 mg/dL (0.2-1.3); Blood Urea Nitrogen 11 mg/dL (7-17); Calcium 9.5 mg/dL (8.4-10.2); Carbon Dioxide 26 mmol/L (22-32); Chloride 103 mmol/L (98-107); Estimated Glomerular Filt Rate > 60.0 mL/min (>60); Globulin 2.8 g/dL (1.7-4.1); Glucose 185 mg/dL (80-110); HEMOLYSIS < 15 (0-50); Potassium 4.1 mmol/L (3.4-5.1); Sodium 138 mmol/L (137-145)
[2022-02-05 10:00] LABS: Free T4, Direct Thyroxine 1.18 ng/dL (0.78-2.19)
== END ==
PROVIDERS: PCP Family Medicine; Referring Provider Family Medicine; Visit Provider Family Medicine
DX: E11.9 Type 2 diabetes mellitus without complications (principal); Z79.4 Long term (current) use of insulin; E03.9 Hypothyroidism, unspecified
CPT/HCPCS: 36415; 80053; 83036; 84439; 84443

== ENCOUNTER → 2022-04-17 11:25 | Outpatient (CLI) | payer MEDICARE, BC, SELFPAY ==
[2022-04-17 12:39] LABS: Add Manual Diff / Slide Review NO; Basophils Absolute Auto 100 /uL (0-100); Basophils Percent Auto 0.8 % (0-2); Eosinophils Absolute Auto 100 /uL (0-450); Eosinophils Percent Auto 1.2 % (2-4); Hemoglobin 13.7 g/dL (12.0-16.0); Lymphocytes Absolute Auto 2200 /uL (1100-4500); Lymphocytes Percent Auto 22.3 % (25-40); Mean Corpuscular HGB Conc 35.1 % (30-36); Mean Corpuscular Hemoglobin 30.9 PG (26-34); Mean Corpuscular Volume 88.2 fL (80-100); Monocytes Absolute Auto 700 /uL (0-900); Monocytes Percent Auto 7.5 % (3-14); Neutrophils Absolute Auto 6800 /uL (1500-7000); Neutrophils Percent Auto 68.2 % (50-75); Platelet Count 231 X10^3/uL (150-400); Red Blood Cell Count 4.43 X10^6/uL (4.0-5.2); Red Cell Distribution Width 14.2 % (11.6-14.8); White Blood Cell Count 9.9 X10^3/uL (4.5-11.0)
[2022-04-17 12:53] LABS: Hemoglobin A1C% w Est Avg Glu 9.7 % (4.0-6.0)
[2022-04-17 12:59] LABS: Alanine Aminotransferase 18 IU/L (<35); Albumin 4.1 g/dL (3.5-5.0); Albumin Globulin Ratio 1.2 (1.0-2.8); Alkaline Phosphatase 64 U/L (38-126); Aspartate Aminotransferase 25 IU/L (14-36); Bilirubin Total 0.5 mg/dL (0.2-1.3); Blood Urea Nitrogen 15 mg/dL (7-17); Calcium 9.2 mg/dL (8.4-10.2); Carbon Dioxide 26 mmol/L (22-32); Chloride 99 mmol/L (98-107); Estimated Glomerular Filt Rate > 60 mL/min (>60); Globulin 3.3 g/dL (1.7-4.1); Glucose 327 mg/dL (80-110); HEMOLYSIS < 15 (0-50); Lipase 78 U/L (23-300); Potassium 4.7 mmol/L (3.4-5.1); Sodium 136 mmol/L (137-145); Total Protein 7.4 g/dL (6.3-8.2)
[2022-04-17 13:41] LABS: Free T4, Direct Thyroxine 1.35 ng/dL (0.78-2.19)
[2022-04-17 13:55] LABS: Thyroid Stimulating Hormone 1.02 uIU/mL (0.47-4.68)
== END ==
PROVIDERS: PCP Family Medicine; Referring Provider Physician Assistant; Visit Provider Physician Assistant
DX: R10.32 Left lower quadrant pain (principal); E11.9 Type 2 diabetes mellitus without complications; E03.9 Hypothyroidism, unspecified; E78.2 Mixed hyperlipidemia; I10 Essential (primary) hypertension; Z79.4 Long term (current) use of insulin
CPT/HCPCS: 36415; 80053; 83036; 83690; 84439; 84443; 85025

== ENCOUNTER → 2022-04-29 12:50 | Outpatient (CLI) | payer MEDICARE, BC, SELFPAY ==
--- NOTE | 2022-04-29 12:52 | DI.CT.S_ITS ---
PROCEDURE: CT ABDOMEN PELVIS WO CON INDICATIONS: LLQ abd pain, months worsening, hx of L lower hernia repair TECHNIQUE: Axial sections were acquired from the lung bases to the pubic symphysis. Coronal and sagittal reformats were performed. For radiation dose reduction, the following was used: automated exposure control, adjustment of mA and/or kV according to patient size. COMPARISON: [facility], CT, ABDOMEN/PELVIS WITHOUT CONTRAST, 02/14/2012, 13:38. FINDINGS: Image quality: Excellent. Lung bases: Unremarkable. Heart: No significant findings. URINARY: Right Kidney: Punctate calculus is noted in the superior pole. No obstruction. Right Ureter: No hydroureter. Left Kidney: Punctate nonobstructing left superior renal pole calculus. No obstruction. Left Ureter: No hydroureter. Bladder: Normal wall thickness. No stones. ABDOMEN: Liver: Hepatic steatosis is present. Gallbladder: Unremarkable. Biliary ducts: Unremarkable. Pancreas: Unremarkable. Spleen: Unremarkable. Adrenal Glands: Unremarkable. Stomach and Bowel: Stomach, small bowel loops, and colon are nonobstructive. Moderate colonic diverticula are present without inflammatory change. Peritoneum: No abnormal intraperitoneal fluid. No free air. Ventral Wall: No hernia. Abdominal Nodes: No enlarged retroperitoneal or mesenteric lymph nodes. Vessels: Aorta and inferior vena cava are normal in size. PELVIS: Pelvic Organs: Unremarkable. Pelvic Nodes: Unremarkable. Miscellaneous: No inguinal hernias are seen. Bones: Unremarkable. IMPRESSION: Diverticulosis. Nonobstructing punctate bilateral renal calculi. Dictated by: Randa Bashir M.D. on 04/29/2022 at 13:10 Approved by: Randa Bashir M.D. on 04/29/2022 at 13:25
== END ==
PROVIDERS: PCP Family Medicine; Referring Provider Family Medicine; Visit Provider Family Medicine
DX: K57.90 Diverticulosis of intestine, part unspecified, without perforation or abscess without bleeding (principal); N20.0 Calculus of kidney; R10.32 Left lower quadrant pain; Z90.49 Acquired absence of other specified parts of digestive tract
CPT/HCPCS: 74176

== ENCOUNTER → 2022-06-12 10:27 | Outpatient (CLI) | payer MEDICARE, BC, SELFPAY ==
--- NOTE | 2022-06-12 | DI.MG.S_ITS ---
BILATERAL DIGITAL SCREENING MAMMOGRAM 3D/2D WITH CAD: 06/12/2022 CLINICAL: Routine screening. Comparison is made to exams dated: 04/04/2021 mammogram, 03/22/2021 mammogram, and 12/18/2018 mammogram - [facility]. The tissue of both breasts is predominantly fatty. Current study was also evaluated with a Computer Aided Detection (CAD) system. There are benign post operative findings and biopsy clips in the right breast. No significant masses, calcifications, or other findings are seen in either breast. There has been no significant interval change. IMPRESSION: BENIGN There is no mammographic evidence of malignancy. A 1 year screening mammogram is recommended. Based on the Tyrer Cuzick model (a risk assessment model) the patient's lifetime risk is 0.8% and her 10 year risk is 0.0%. According to the ACR, ACS, and NCCN guidelines, an annual breast MRI exam along with mammogram is recommended if the patient's lifetime risk is 20% or greater. This exam was interpreted at Station ID: [id number]. NOTE: For mammograms, a report in lay terms will be sent to the patient. Approximately 15% of breast malignancies will not be visualized mammographically. In the management of a palpable breast mass, a negative mammogram must not discourage biopsy of a clinically suspicious lesion. Electronically Signed By: Laya alvarado/radha:06/12/2022 14:34:47 letter sent: Normal Exam ACR BI-RADS Category 2: Benign Finding(s) [id number]
== END ==
PROVIDERS: PCP Family Medicine; Referring Provider Family Medicine; Visit Provider Family Medicine
DX: Z12.31 Encounter for screening mammogram for malignant neoplasm of breast (principal)
CPT/HCPCS: 77063; 77067

== ENCOUNTER → 2022-12-05 08:29 | Outpatient (CLI) | payer MEDICARE, BC, SELFPAY ==
[2022-12-05 09:54] LABS: Add Manual Diff / Slide Review NO; Basophils Absolute Auto 100 /uL (0-100); Eosinophils Absolute Auto 200 /uL (0-450); Eosinophils Percent Auto 2.4 % (2-4); Hematocrit 41.5 % (36-46); Lymphocytes Absolute Auto 2000 /uL (1100-4500); Lymphocytes Percent Auto 26.6 % (25-40); Mean Corpuscular HGB Conc 33.7 % (30-36); Mean Corpuscular Hemoglobin 30.4 PG (26-34); Mean Corpuscular Volume 90.2 fL (80-100); Monocytes Absolute Auto 600 /uL (0-900); Monocytes Percent Auto 8.6 % (3-14); Neutrophils Absolute Auto 4500 /uL (1500-7000); Neutrophils Percent Auto 61.4 % (50-75); Platelet Count 193 X10^3/uL (150-400); Red Cell Distribution Width 13.9 % (11.6-14.8); White Blood Cell Count 7.4 X10^3/uL (4.5-11.0)
[2022-12-05 10:01] LABS: Hemoglobin A1C% w Est Avg Glu 9.3 % (4.0-6.0)
[2022-12-05 10:26] LABS: Alanine Aminotransferase 28 IU/L (<35); Alkaline Phosphatase 85 U/L (38-126); Aspartate Aminotransferase 41 IU/L (14-36); Bilirubin Total 0.5 mg/dL (0.2-1.3); Blood Urea Nitrogen 10 mg/dL (7-17); Calcium 9.9 mg/dL (8.4-10.2); Carbon Dioxide 23 mmol/L (22-32); Chloride 102 mmol/L (98-107); Cholesterol 188 mg/dL (140-199); Estimated Glomerular Filt Rate > 60 mL/min (>60); Glucose 214 mg/dL (80-110); HDL Cholesterol 31 mg/dL (40-60); HEMOLYSIS < 15 (0-50); LDL Cholesterol Calculated 109 mg/dL (<100); Potassium 3.9 mmol/L (3.4-5.1); Sodium 137 mmol/L (137-145); Total Protein 7.3 g/dL (6.3-8.2); Triglycerides 240 mg/dL (35-150)
[2022-12-05 10:53] LABS: TSH w/ Reflex to FT4 1.95 uIU/mL (0.47-4.68)
[2022-12-06 16:59] LABS: Albumin Globulin Ratio 1.2 (1.0-2.8); Globulin 3.3 g/dL (1.7-4.1)
== END ==
PROVIDERS: PCP Family Medicine; Referring Provider Family Medicine; Visit Provider Family Medicine
DX: E11.42 Type 2 diabetes mellitus with diabetic polyneuropathy (principal); E78.2 Mixed hyperlipidemia; E03.9 Hypothyroidism, unspecified; I10 Essential (primary) hypertension
CPT/HCPCS: 36415; 80053; 80061; 83036; 84443; 85025

== ENCOUNTER → 2023-01-26 14:47 | Outpatient (CLI) | payer MEDICARE, BC, SELFPAY ==
--- NOTE | 2023-01-26 14:48 | DI.RAD.S_ITS ---
PROCEDURE: XR CHEST 2V INDICATIONS: Cough x 1 month TECHNIQUE: 2 views of the chest were acquired. COMPARISON: [facility], , XR CHEST 2V, 09/17/2021, 15:10. FINDINGS: Surgical changes and devices: None. Lungs and pleura: Lungs are clear. No pleural effusions or pneumothorax. Interstitial prominence is unchanged compared to the prior study and is likely chronic. Mediastinum: Mediastinal contours are normal. Heart size is normal. Bones and chest wall: No suspicious bony abnormalities. Soft tissues appear unremarkable. IMPRESSION: No acute cardiopulmonary abnormality. Dictated by: Pierre Zamora M.D. on 01/26/2023 at 14:46 Approved by: Pierre Zamora M.D. on 01/26/2023 at 14:47
== END ==
PROVIDERS: PCP Family Medicine; Referring Provider Urology; Visit Provider Urology
DX: R05.9 Cough, unspecified (principal)
CPT/HCPCS: 71046

== ENCOUNTER → 2023-02-06 15:24 | Outpatient (CLI) | payer MEDICARE, BC, SELFPAY ==
--- NOTE | 2023-02-06 | DI.MRI.S_ITS ---
PROCEDURE: MR ANGIO HEAD WO CON INDICATIONS: HYPERTENSION TECHNIQUE: Noncontrast axial 3-D [id number] MR angiogram, with 3-dimensional maximum intensity projection (MIP) reformats of the internal carotid arteries and posterior circulation then performed. COMPARISON: [facility], , ANGIO HEAD WITHOUT CONTRAST, 12/21/2015, 18:43. FINDINGS: Image quality: Excellent. Anterior circulation: The medially directed saccular outpouching of the mid cavernous segment of the left internal carotid artery measuring roughly 4 mm is not significantly changed. Intracranial internal carotid arteries demonstrate otherwise normal size and intraluminal flow signal. The flow within the paired anterior cerebral arteries is normal and symmetric. The flow within the middle cerebral arteries is normal and symmetric. The anterior communicating artery is seen. No stenoses nor occlusions. Posterior circulation: Visualized portions of the vertebral arteries demonstrate normal caliber, and join to form a normal appearing basilar artery. The flow within the posterior cerebral arteries is normal and symmetric. No stenoses, occlusions, or aneurysms. IMPRESSION: 1. No significant change in small left internal carotid artery aneurysm. Dictated by: Eric Georges M.D. on 02/06/2023 at 16:40 Transcribed by: BARBARA on 02/06/2023 at 16:42 Approved by: Eric Georges M.D. on 02/06/2023 at 16:52
--- NOTE | 2023-02-06 | DI.MRI.S_ITS ---
PROCEDURE: MR ANGIO NECK WO CON INDICATIONS: CAROTID ANEURYSM. TECHNIQUE: Axial and sagittal TruFISP through the neck. Coronal dynamic MRA after the administration of contrast in the arterial and venous phases, with rotating 3-dimensional maximum intensity projection (MIP) reformats constructed from subtraction images. The patient declined IV contrast, describing a prior MRI contrast allergy. COMPARISON: None. FINDINGS: Image quality: Limited by lack of IV contrast. Carotid system: Great vessels demonstrate a conventional anatomy as they arise from the aortic arch. The origins of the common carotid arteries appear normal. The calibers and courses of the common carotid arteries are likewise normal. The carotid bifurcations appear normal bilaterally. The internal carotid arteries are widely patent up to the [place]. Posterior circulation: The origins of the vertebral arteries are unremarkable. The proximal/inferior vertebral arteries demonstrate no significant abnormality. The distal vertebral arteries are poorly seen. The join to form a normal appearing basilar artery. Miscellaneous: Subclavian arteries are patent throughout. Pre-contrast images through the neck demonstrate no soft tissue abnormalities. IMPRESSION: To the limits of noncontrast MR angiogram, no significant abnormality can be seen. Any quantitative measurements of stenosis were performed using NASCET criteria. Dictated by: Andrea Matt M.D. on 02/06/2023 at 17:05 Approved by: Andrea Matt M.D. on 02/06/2023 at 17:06
--- NOTE | 2023-02-06 15:26 | DI.MRI.S_ITS ---
PROCEDURE: MR HEAD/BRAIN WO CON INDICATIONS: Aneurysm of carotid artery TECHNIQUE: Non-contrast axial T1 spin echo, axial T2 fast spin echo, sagittal and axial FLAIR, coronal T2 fast spin echo, axial gradient echo, axial diffusion and ADC through the brain. COMPARISON: None. FINDINGS: Image quality: Excellent. CSF spaces: Ventricles appear symmetric in size and shape. Basal cisterns are patent. No extra-axial fluid collections. Brain: No intracranial bleeds or mass effects. There is cerebral volume loss for age. There are periventricular and deep white matter chronic small vessel ischemic changes. Brainstem appears normal. Diffusion-weighted images show no acute ischemic insults. No chronic ischemic insults. Normal intravascular flow voids are present. Skull and face: Calvarial bone marrow is normal in signal. Orbits are normal. Sinuses: Sinuses and mastoids are clear. IMPRESSION: 1. Mild volume loss and small vessel ischemic disease. 2. No acute process. No recent infarct. Dictated by: Eric Georges M.D. on 02/06/2023 at 16:42 Transcribed by: BARBARA on 02/06/2023 at 16:43 Approved by: Eric Georges M.D. on 02/06/2023 at 16:57
== END ==
PROVIDERS: PCP Family Medicine; Referring Provider Internal Medicine Cardiovascular Disease; Visit Provider Internal Medicine Cardiovascular Disease
DX: I10 Essential (primary) hypertension (principal); I72.0 Aneurysm of carotid artery; I67.89 Other cerebrovascular disease
CPT/HCPCS: 70544; 70547; 70551

== ENCOUNTER → 2023-02-18 08:09 | Outpatient (CLI) | payer MEDICARE, BC, SELFPAY ==
[2023-02-18 09:42] LABS: Alanine Aminotransferase 24 IU/L (<35); Albumin Globulin Ratio 1.2 (1.0-2.8); Alkaline Phosphatase 82 U/L (38-126); Aspartate Aminotransferase 30 IU/L (14-36); BUN Creatinine Ratio 25.5 (6-22); Bilirubin Total 0.7 mg/dL (0.2-1.3); Blood Urea Nitrogen 14 mg/dL (7-17); Carbon Dioxide 26 mmol/L (22-32); Chloride 101 mmol/L (98-107); Cholesterol 173 mg/dL (140-199); Estimated Glomerular Filt Rate > 60 mL/min (>60); Globulin 3.4 g/dL (1.7-4.1); Glucose 201 mg/dL (80-110); HDL Cholesterol 31 mg/dL (40-60); HEMOLYSIS < 15 (0-50); LDL Cholesterol Calculated 92 mg/dL (<100); Potassium 4.2 mmol/L (3.4-5.1); Sodium 136 mmol/L (137-145); Total Protein 7.4 g/dL (6.3-8.2); Triglycerides 251 mg/dL (35-150)
[2023-02-18 10:17] LABS: TSH w/ Reflex to FT4 1.54 uIU/mL (0.47-4.68)
[2023-02-19 05:38] LABS: Labcorp Hemoglobin (Hb) A1c 9.8 % (4.8-5.6)
== END ==
PROVIDERS: PCP Family Medicine; Referring Provider Family Medicine; Visit Provider Family Medicine
DX: E11.42 Type 2 diabetes mellitus with diabetic polyneuropathy (principal); E78.2 Mixed hyperlipidemia; E03.9 Hypothyroidism, unspecified; I10 Essential (primary) hypertension
CPT/HCPCS: 36415; 80053; 80061; 83036; 84443

== ENCOUNTER → 2023-07-30 13:03 | Outpatient (CLI) | payer MEDICARE, BC, SELFPAY ==
--- NOTE | 2023-07-30 13:04 | DI.MG.S_ITS ---
BILATERAL DIGITAL SCREENING MAMMOGRAM 3D/2D WITH CAD: 07/30/2023 CLINICAL: Routine screening. Comparison is made to exams dated: 06/12/2022 mammogram, 03/22/2021 mammogram, and 12/18/2018 mammogram - [facility]. Both breasts are almost entirely fatty (category a/<25% glandular tissue). Current study was also evaluated with a Computer Aided Detection (CAD) system. There are benign post operative findings and biopsy clips in the right breast. No significant masses, calcifications, or other findings are seen in either breast. There has been no significant interval change. IMPRESSION: BENIGN There is no mammographic evidence of malignancy. A 1 year screening mammogram is recommended. Based on the Tyrer Cuzick model (a risk assessment model) the patient's lifetime risk is 0.7% and her 10 year risk is 0.0%. According to the ACR, ACS, and NCCN guidelines, an annual breast MRI exam along with mammogram is recommended if the patient's lifetime risk is 20% or greater. This exam was interpreted at Station ID: [id number]. NOTE: For mammograms, a report in lay terms will be sent to the patient. Approximately 15% of breast malignancies will not be visualized mammographically. In the management of a palpable breast mass, a negative mammogram must not discourage biopsy of a clinically suspicious lesion. Electronically Signed By: Wei borges/radha:07/30/2023 17:55:56 letter sent: Normal Exam ACR BI-RADS Category 2: Benign Finding(s) [id number]
== END ==
PROVIDERS: PCP Family Medicine; Referring Provider Family Medicine; Visit Provider Family Medicine
DX: Z12.31 Encounter for screening mammogram for malignant neoplasm of breast (principal)
CPT/HCPCS: 77063; 77067

== ENCOUNTER → 2023-08-26 08:20 | Outpatient (CLI) | payer MEDICARE, BC, SELFPAY ==
[2023-08-26 09:12] LABS: Add Manual Diff / Slide Review NO; Basophils Absolute Auto 100 /uL (0-100); Basophils Percent Auto 0.5 % (0-2); Eosinophils Absolute Auto 300 /uL (0-450); Eosinophils Percent Auto 2.7 % (2-4); Hematocrit 40.6 % (36-46); Hemoglobin 14.4 g/dL (12.0-16.0); Lymphocytes Absolute Auto 2700 /uL (1100-4500); Lymphocytes Percent Auto 28.6 % (25-40); Mean Corpuscular HGB Conc 35.4 % (30-36); Mean Corpuscular Hemoglobin 31.6 PG (26-34); Mean Corpuscular Volume 89.1 fL (80-100); Monocytes Absolute Auto 800 /uL (0-900); Monocytes Percent Auto 8.7 % (3-14); Neutrophils Absolute Auto 5700 /uL (1500-7000); Neutrophils Percent Auto 59.5 % (50-75); Platelet Count 196 X10^3/uL (150-400); Red Blood Cell Count 4.56 X10^6/uL (4.0-5.2); Red Cell Distribution Width 14.1 % (11.6-14.8); White Blood Cell Count 9.5 X10^3/uL (4.5-11.0)
[2023-08-26 09:43] LABS: Alanine Aminotransferase 26 IU/L (<35); Albumin Globulin Ratio 1.3 (1.0-2.8); Alkaline Phosphatase 60 U/L (38-126); Aspartate Aminotransferase 30 IU/L (14-36); BUN Creatinine Ratio 24.6 (6-22); Bilirubin Total 0.5 mg/dL (0.2-1.3); Blood Urea Nitrogen 15 mg/dL (7-17); Calcium 9.3 mg/dL (8.4-10.2); Carbon Dioxide 23 mmol/L (22-32); Chloride 100 mmol/L (98-107); Cholesterol 187 mg/dL (140-199); Estimated Glomerular Filt Rate > 60 mL/min (>60); Glucose 209 mg/dL (80-110); HDL Cholesterol 35 mg/dL (40-60); HEMOLYSIS < 15 (0-50); LDL Cholesterol Calculated 98 mg/dL (<100); Potassium 4.1 mmol/L (3.4-5.1); Sodium 135 mmol/L (137-145); Triglycerides 270 mg/dL (35-150)
[2023-08-26 10:08] LABS: TSH w/ Reflex to FT4 2.52 uIU/mL (0.47-4.68)
[2023-08-26 10:44] LABS: Hemoglobin A1C% w Est Avg Glu 9.3 % (4.0-6.0)
== END ==
PROVIDERS: PCP Family Medicine; Referring Provider Family Medicine; Visit Provider Family Medicine
DX: E11.42 Type 2 diabetes mellitus with diabetic polyneuropathy (principal); E78.5 Hyperlipidemia, unspecified; I10 Essential (primary) hypertension; E03.9 Hypothyroidism, unspecified
CPT/HCPCS: 36415; 80053; 80061; 83036; 84443; 85025

== ENCOUNTER → 2023-08-28 10:14 | Outpatient (CLI) | payer MEDICARE, BC, SELFPAY ==
--- NOTE | 2023-08-28 10:16 | DI.RAD.S_ITS ---
PROCEDURE: XR ABDOMEN MIN 2V INDICATIONS: abdominal pain TECHNIQUE: 2 views of the abdomen were acquired. COMPARISON: [facility], , XR ABDOMEN 1V, 10/04/2021, 16:08. FINDINGS: Surgical changes and devices: Cholecystectomy clips and surgical clips projecting over the right iliac bone. Bowel: No pneumoperitoneum. The bowel gas pattern is normal. Moderate colonic stool load. Soft tissues: No masses; visualized solid organ contours appear normal in size. No suspicious abdominal calcifications. Bones: No suspicious bony abnormalities. IMPRESSION: Moderate colonic stool load. Dictated by: Kenny Preston M.D. on 08/28/2023 at 12:15 Approved by: Kenny Preston M.D. on 08/28/2023 at 12:15
== END ==
PROVIDERS: PCP Family Medicine; Referring Provider Family Medicine; Visit Provider Family Medicine
DX: R10.9 Unspecified abdominal pain (principal)
CPT/HCPCS: 74019

== ENCOUNTER → 2023-09-15 13:40 | Outpatient (CLI) | payer MEDICARE, BC, SELFPAY ==
--- NOTE | 2023-09-15 13:41 | DI.CT.S_ITS ---
PROCEDURE: CT ABDOMEN PELVIS WO [facility] INDICATIONS: Abdominal pain TECHNIQUE: Axial sections were acquired from the lung bases to the pubic symphysis. Coronal and sagittal reformats were performed. For radiation dose reduction, the following was used: automated exposure control, adjustment of mA and/or kV according to patient size. COMPARISON: [facility], CT, CT ABDOMEN PELVIS [facility], 04/29/2022, 12:55. FINDINGS: Image quality: Excellent. Lung bases: Mild peripheral reticulation without bronchiectasis. Heart: No significant findings. URINARY: Right Kidney: Punctate nonobstructing nephrolithiasis. No hydronephrosis. Vascular calcification. Subcentimeter hypoattenuating lesions, too small to characterize by CT but probably small cysts. Right Ureter: No hydroureter. Left Kidney: Punctate cortical calcification. No hydronephrosis. Left Ureter: No hydroureter. Bladder: Normal wall thickness. No stones. ABDOMEN: Liver: Unremarkable. Gallbladder: Absent. Biliary ducts: Unremarkable. Pancreas: Unremarkable. Spleen: Unremarkable. Adrenal Glands: Unremarkable. Stomach and Bowel: Colonic diverticulosis without evidence of diverticulitis. Appendectomy. Fecal debris within the small bowel. Peritoneum: No abnormal intraperitoneal fluid. No free air. Ventral Wall: Small hiatal hernia. Abdominal Nodes: No enlarged retroperitoneal or mesenteric lymph nodes. Vessels: Aorta and inferior vena cava are normal in size. PELVIS: Pelvic Organs: Unremarkable. Pelvic Nodes: Unremarkable. Miscellaneous: No inguinal hernias are seen. Bones: [id number] degenerative disc disease and mild hip osteoarthritis. IMPRESSION: No findings to explain the patient's right lower abdominal pain. Colonic diverticulosis without evidence of diverticulitis. Punctate nonobstructing right-sided nephrolithiasis. No hydronephrosis. Dictated by: Kenny Preston M.D. on 09/15/2023 at 14:20 Approved by: Kenny Preston M.D. on 09/15/2023 at 14:24
== END ==
PROVIDERS: PCP Family Medicine; Referring Provider Surgery; Visit Provider Surgery
DX: R10.9 Unspecified abdominal pain (principal); K57.90 Diverticulosis of intestine, part unspecified, without perforation or abscess without bleeding; N20.0 Calculus of kidney
CPT/HCPCS: 74176

== ENCOUNTER → 2024-04-21 17:00 | Outpatient (CLI) | payer MEDICARE, BC, SELFPAY ==
--- NOTE | 2024-04-21 17:01 | DI.RAD.S_ITS ---
PROCEDURE: XR CHEST 2V INDICATIONS: Persistent cough x 2 weeks. PH of pneumonia TECHNIQUE: 2 views of the chest were acquired. COMPARISON: [facility], CR, XR CHEST 2V, 01/26/2023, 14:59. FINDINGS: Surgical changes and devices: None. Lungs and pleura: Mild appearance of increased interstitial prominence. Mediastinum: Mediastinal contours are normal. Heart size is enlarged. Bones and chest wall: No suspicious bony abnormalities. Soft tissues appear unremarkable. IMPRESSION: Mild increased interstitial prominence. While this could be related to interstitial pneumonia, appearance is also suspicious for edema similar compared to prior exam. Dictated by: Randa Bashir M.D. on 04/22/2024 at 11:18 Approved by: Randa Bashir M.D. on 04/22/2024 at 11:19
== END ==
PROVIDERS: PCP Family Medicine; Referring Provider Family Medicine; Visit Provider Family Medicine
DX: R05.3 Chronic cough (principal)
CPT/HCPCS: 71046

== ENCOUNTER → 2024-05-11 07:35 | Outpatient (CLI) | payer MEDICARE, BC, SELFPAY ==
[2024-05-11 08:24] LABS: Hemoglobin A1C% w Est Avg Glu 9.1 % (4.0-6.0)
[2024-05-11 12:50] LABS: Creatinine Urine Random 75.45 mg/dL
[2024-05-11 12:56] LABS: Microalbumin Urine Random 5.4 mg/dL (0-1.6)
== END ==
PROVIDERS: PCP Family Medicine; Referring Provider Family Medicine; Visit Provider Family Medicine
DX: E11.42 Type 2 diabetes mellitus with diabetic polyneuropathy (principal); I10 Essential (primary) hypertension
CPT/HCPCS: 36415; 82043; 82570; 83036

== ENCOUNTER → 2024-08-03 07:38 | Outpatient (CLI) | payer MEDICARE, BC, SELFPAY ==
[2024-08-03 08:18] LABS: Cholesterol 161 mg/dL (140-199); HDL Cholesterol 35 mg/dL (40-60); LDL Cholesterol Calculated 79 mg/dL (<100); Triglycerides 236 mg/dL (35-150)
== END ==
LOC: LAB 07:40
PROVIDERS: PCP Family Medicine; Referring Provider Internal Medicine Cardiovascular Disease; Visit Provider Internal Medicine Cardiovascular Disease
DX: I10 Essential (primary) hypertension (principal); I51.7 Cardiomegaly
CPT/HCPCS: 36415; 80061

== ENCOUNTER → 2024-08-31 12:44 | Outpatient (CLI) | payer MEDICARE, BC, SELFPAY ==
--- NOTE | 2024-08-31 12:45 | DI.MG.S_ITS ---
BILATERAL DIGITAL SCREENING MAMMOGRAM 3D/2D WITH CAD: 08/31/2024 CLINICAL: Routine screening. Comparison is made to exams dated: 07/30/2023 mammogram, 06/12/2022 mammogram, and 03/22/2021 mammogram - [facility]. There are scattered areas of fibroglandular density (category b / 25%-50% glandular tissue). Current study was also evaluated with a Computer Aided Detection (CAD) system. There are benign post operative findings and biopsy clips in the right breast. No significant masses, calcifications, or other findings are seen in either breast. There has been no significant interval change. IMPRESSION: BENIGN There is no mammographic evidence of malignancy. A 1 year screening mammogram is recommended. Based on the Tyrer Cuzick model (a risk assessment model) the patient's lifetime risk is 0.9% and her 10 year risk is 0.0%. According to the ACR, ACS, and NCCN guidelines, an annual breast MRI exam along with mammogram is recommended if the patient's lifetime risk is 20% or greater. This exam was interpreted at Station ID: [id number]. NOTE: For mammograms, a report in lay terms will be sent to the patient. Approximately 15% of breast malignancies will not be visualized mammographically. In the management of a palpable breast mass, a negative mammogram must not discourage biopsy of a clinically suspicious lesion. Electronically Signed By: Brian ag/radha:08/31/2024 14:06:25 letter sent: Normal Exam ACR BI-RADS Category 2: Benign
== END ==
PROVIDERS: PCP Family Medicine; Referring Provider Family Medicine; Visit Provider Family Medicine
DX: Z12.31 Encounter for screening mammogram for malignant neoplasm of breast (principal)
CPT/HCPCS: 77063; 77067

== ENCOUNTER → 2024-11-22 08:22 | Outpatient (CLI) | payer MEDICARE, BC, SELFPAY ==
[2024-11-22 10:30] LABS: Add Manual Diff / Slide Review NO; Basophils Absolute Auto 100 /uL (0-100); Basophils Percent Auto 0.7 % (0-2); Eosinophils Absolute Auto 200 /uL (0-450); Eosinophils Percent Auto 2.8 % (2-4); Hematocrit 40.2 % (36-46); Hemoglobin 13.6 g/dL (12.0-16.0); Lymphocytes Absolute Auto 2200 /uL (1100-4500); Lymphocytes Percent Auto 26.8 % (25-40); Mean Corpuscular Hemoglobin 30.7 PG (26-34); Mean Corpuscular Volume 90.5 fL (80-100); Monocytes Absolute Auto 700 /uL (0-900); Monocytes Percent Auto 8.5 % (3-14); Neutrophils Absolute Auto 5000 /uL (1500-7000); Neutrophils Percent Auto 61.2 % (50-75); Platelet Count 196 X10^3/uL (150-400); Red Blood Cell Count 4.44 X10^6/uL (4.0-5.2); Red Cell Distribution Width 14.3 % (11.6-14.8); White Blood Cell Count 8.1 X10^3/uL (4.5-11.0)
[2024-11-22 10:34] LABS: Hemoglobin A1C% w Est Avg Glu 9.5 % (4.0-6.0)
[2024-11-22 10:54] LABS: Alanine Aminotransferase 26 IU/L (<35); Albumin 3.8 g/dL (3.5-5.0); Albumin Globulin Ratio 1.5 (1.0-2.8); Alkaline Phosphatase 72 U/L (38-126); Aspartate Aminotransferase 33 IU/L (14-36); BUN Creatinine Ratio 27.9 (6-22); Bilirubin Total 0.5 mg/dL (0.2-1.3); Blood Urea Nitrogen 17 mg/dL (7-17); Calcium 9.5 mg/dL (8.4-10.2); Carbon Dioxide 24 mmol/L (22-32); Chloride 103 mmol/L (98-107); Cholesterol 175 mg/dL (140-199); Estimated Glomerular Filt Rate > 60 mL/min (>60); Globulin 2.5 g/dL (1.7-4.1); Glucose 210 mg/dL (80-110); HDL Cholesterol 34 mg/dL (40-60); HEMOLYSIS < 15 (0-50); LDL Cholesterol Calculated 92 mg/dL (<100); Potassium 4.3 mmol/L (3.4-5.1); Sodium 135 mmol/L (137-145); Total Protein 6.3 g/dL (6.3-8.2); Triglycerides 247 mg/dL (35-150)
[2024-11-22 11:22] LABS: TSH w/ Reflex to FT4 1.82 uIU/mL (0.47-4.68)
== END ==
PROVIDERS: PCP Family Medicine; Referring Provider Family Medicine; Visit Provider Family Medicine
DX: E11.42 Type 2 diabetes mellitus with diabetic polyneuropathy (principal); E78.5 Hyperlipidemia, unspecified; I10 Essential (primary) hypertension; E03.9 Hypothyroidism, unspecified
CPT/HCPCS: 36415; 80053; 80061; 83036; 84443; 85025

== ENCOUNTER → 2025-01-21 12:47 | Outpatient (CLI) | payer MEDICARE, BC, SELFPAY ==
--- NOTE | 2025-01-21 13:06 | DIAB.MNT ---
Initial Diabetes Medical Nutrition Therapy Assessment Name: Christina Middleton Date: 01/21/25 Time: 1-2p Dx: Type II Diabetes Provider: Karan Preferred Learning Style: Listening, Watching, Doing Christina presents for initial DM visit. Diagnosed 18 years ago per report. Reports her main concern is starting more injections. She is very worried about this. Endorses many allergies for diabetes medications. Rybelsus caused n/v. Has rx for Januvia, which she reports may cause nose bleeds. States she has a h/o nosebleeds excessively but has been treated and no longer has them. This is not a common side effect seemingly, but with her medical hx she would like to avoid this medication. Endorses palpitations and feeling unwell after higher dose of long acting insulin at night. Does not check BG. No SE to insulin at any other time. Seems likely that she may be experiencing hypoglycemia symptoms, even with BG >70 but lower than her usual. Endorses neuropathy, glaucoma, and bleeding within the eye. Rotating injections appropriately per report. Using smaller plate at meals. May benefit from both CGM and insulin pump therapy. Has a friend with [employer] system. Endorses fear of needles and very much dreads current injections and fingersticks. Open to CGM but would like to think on this for a few weeks prior to trying sample. If not pump therapy, may want to consider 70/30 BID. Follows low CHO and higher protein diet. Diet Recall: 6-8a: coffee, toast, sometimes with fruit, +/- egg 12-1p: salad and protein 6-630p: protein and veggies +/- small piece of fruit Anthropometrics: Ht: 63 Wt: 183# 11/2024 Physical Activity: uses exercise bike 3x per week in the morning x 10-15 mins. Barriers to activity, include balance and back issues. Self-Monitoring Blood Glucose: FBG and HS checks. FB-250mg/dl HS: 250-300mg/dl Diabetes Medications: 44u Glargine AM 38u Glargine PM Pertinent Labs: HgA1c: 9.1% 04/2024 9.5% 11/2024 Past Medical History: (Last Updated 05/11/24 @ 16:02 by Huber Russo, DO) Abdominal pain Abnormal chest x-ray Allergies Allergy to iodinated contrast Chronic cough ??? Colon polyps Diabetes Dyspareunia Dyspepsia Epistaxis GERD (gastroesophageal reflux disease) Glaucoma History of coronary angiogram History of UTI Hx of angiography Hyperlipidemia Hypothyroidism (~1975) Incomplete emptying of bladder Inflammatory bowel diseases (IBD) Lower urinary tract symptoms (LUTS) Multiple drug allergies Postmenopausal atrophic vaginitis Recurrent urinary tract infection Scoliosis Sinusitis Type 2 diabetes mellitus with polyneuropathy Valvular heart disease Nutrition Rx: Plate Method Nutrition Diagnosis: - Predicted inadequate fiber intake r/t limited whole grains, fruit aeb diet recall - Inconsistent protein intake r/t sometimes skipping protein at breakfast aeb diet recall and pt report Intervention: This participant was very receptive. Provided appropriate educational handouts. Discussed the following topics: Completed intake assessment. Discussed barriers to care. Physical activity Protein at meals/snacks Potential options if she does not want to increase injections: insulin pump therapy or 70/30 BID DM medications, actions, side effects CGM potential, action, benefits, precautions Potential for low symptoms with higher glargine despite no actual low <70 Created SMART goals for patient self-care and success. Goals: Bike 3-4 x per week in the AM when BG are lower Make some HB eggs Consider CGM Follow-up: GISELA HENDRICKS follow-up in 3-4 weeks. Christina is certainly experiencing DM complications and would benefit from better BG management. Her main barrier is her reactions to oral DM meds and her fear of injections. Will work with her to determine best plan for DM management. Aminta Valenzuela RDN, CDCES Certified Diabetes Care and Cane [employer]er P: [phone] Thank you for this referral
== END ==
PROVIDERS: PCP Family Medicine; Referring Provider Family Medicine
DX: E11.42 Type 2 diabetes mellitus with diabetic polyneuropathy (principal); Z71.3 Dietary counseling and surveillance; Z79.4 Long term (current) use of insulin; Z88.9 Allergy status to unspecified drugs, medicaments and biological substances
CPT/HCPCS: 97802

== ENCOUNTER → 2025-02-18 13:51 | Outpatient (CLI) | payer MEDICARE, BC, SELFPAY ==
--- NOTE | 2025-02-18 14:10 | DIAB.FU ---
Follow-up Diabetes Education Assessment Name: Christina Middleton Date: 02/18/25 Time: 2-3p Dx: Type II Diabetes Provider: Karan Christina presents for follow-up DM visit. Diagnosed 18 years ago per report. Reports her main concern is starting more injections. She is very worried about this. Today she is open to trying Dexcom however she prefers a review engineer and this RD is awaiting a new shipment. Will place one next visit on 03/03. Plans to see PCP. Worries about starting meal time insulin due to already having a baseline fear with injection. Has a friend with a tandem pump. May qualify for Omnipod. Otherwise, may benefit from 70/30 to reduce injections. Endorses neuropathy, glaucoma, and bleeding within the eye. Has reported racing heart after higher doses of insulin, which are likely r/t feeling low symptoms despite not actually low. Follows low CHO and higher protein diet. Started making HB eggs, as discussed last visit. Anthropometrics: Ht: 63 Wt: 183# 11/2024 Physical Activity: uses exercise bike 3-4x per week in the morning x 10-15 mins. Barriers to activity, include balance and back issues. Self-Monitoring Blood Glucose: FBG and HS checks similar to last visit. FB-250mg/dl HS: 250-300mg/dl Diabetes Medications: 44u Glargine AM 38u Glargine PM Pertinent Labs: HgA1c: 9.1% 04/2024 9.5% 11/2024 Past Medical History: (Last Updated 05/11/24 @ 16:02 by Huber Russo, DO) Abdominal pain Abnormal chest x-ray Allergies Allergy to iodinated contrast Chronic cough ??? Colon polyps Diabetes Dyspareunia Dyspepsia Epistaxis GERD (gastroesophageal reflux disease) Glaucoma History of coronary angiogram History of UTI Hx of angiography Hyperlipidemia Hypothyroidism (~1975) Incomplete emptying of bladder Inflammatory bowel diseases (IBD) Lower urinary tract symptoms (LUTS) Multiple drug allergies Postmenopausal atrophic vaginitis Recurrent urinary tract infection Scoliosis Sinusitis Type 2 diabetes mellitus with polyneuropathy Valvular heart disease Intervention: This participant was very receptive. Provided appropriate educational handouts. Discussed the following topics: Physical activity Protein at meals/snacks Potential options if she does not want to increase injections: insulin pump therapy or 70/30 BID DM medications, actions, side effects CGM potential, action, benefits, precautions Potential for low symptoms with higher glargine despite no actual low <70 Created SMART goals for patient self-care and success. Goals: Bike 3-4 x per week in the AM when BG are lower- met Make some HB eggs - met Consider CGM- met Discuss DM options at PCP visit next week- new Follow-up: GISELA HENDRICKS follow-up in [address] sample[address] messaged PCP about our discussions regarding Omnipod or 70/30 to reduce injections. Aminta Valenzuela RDN, [facility] Certified Diabetes Care and Partner Management Consultant P: [phone] Thank you for this referral
== END ==
PROVIDERS: PCP Family Medicine; Referring Provider Family Medicine
DX: E11.42 Type 2 diabetes mellitus with diabetic polyneuropathy (principal); Z71.3 Dietary counseling and surveillance; Z79.4 Long term (current) use of insulin; Z88.9 Allergy status to unspecified drugs, medicaments and biological substances
CPT/HCPCS: G0108

== ENCOUNTER → 2025-02-22 08:07 | Outpatient (CLI) | payer MEDICARE, BC, SELFPAY ==
[2025-02-22 09:02] LABS: Hemoglobin A1C% w Est Avg Glu 8.4 % (4.0-6.0)
[2025-02-22 09:05] LABS: Alanine Aminotransferase 26 IU/L (<35); Albumin 4.1 g/dL (3.5-5.0); Albumin Globulin Ratio 1.4 (1.0-2.8); Alkaline Phosphatase 81 U/L (38-126); Aspartate Aminotransferase 34 IU/L (14-36); BUN Creatinine Ratio 26.8 (6-22); Bilirubin Total 0.6 mg/dL (0.2-1.3); Blood Urea Nitrogen 19 mg/dL (7-17); Calcium 9.8 mg/dL (8.4-10.2); Carbon Dioxide 26 mmol/L (22-32); Chloride 101 mmol/L (98-107); Estimated Glomerular Filt Rate > 60 mL/min (>60); Glucose 217 mg/dL (80-110); HEMOLYSIS < 15 (0-50); Potassium 4.3 mmol/L (3.4-5.1); Sodium 137 mmol/L (137-145); Total Protein 7.1 g/dL (6.3-8.2)
== END ==
PROVIDERS: PCP Family Medicine; Referring Provider Family Medicine; Visit Provider Family Medicine
DX: E11.42 Type 2 diabetes mellitus with diabetic polyneuropathy (principal)
CPT/HCPCS: 36415; 80053; 83036

== ENCOUNTER → 2025-11-14 12:44 | Outpatient (CLI) | payer MEDICARE, BC, SELFPAY ==
--- NOTE | 2025-11-14 12:45 | DI.MG.S_ITS ---
MM diagnostic mammo BI, US breast RT limited: 11/14/2025 BI-RADS: 2 CLINICAL: 80-year old female for bilateral diagnostic mammogram and right diagnostic breast ultrasound. Tyrer-Cuzick lifetime risk of 0.5%. No personal or first- degree family history of breast cancer. The patient reports pain (3 months) in the right breast. The patient had a prior right breast biopsy. PRIOR EXAMS: 08/31/2024, 07/30/2023, 06/12/2022, 04/18/2021, 04/04/2021, 03/22/2021, 12/18/2018, 09/08/2017. MAMMOGRAPHY TECHNIQUE: 2D and 3D (tomosynthesis) digital mammographic views obtained, with additional images as needed for full coverage. Current study was also evaluated with a Computer Aided Detection (CAD) system. ULTRASOUND TECHNIQUE TARGETED Right Breast Ultrasound: Real-time ultrasound exam was performed focused to area of clinical and/or imaging concern. Real-time crouch scale imaging of the area of clinical interest was performed with image documentation. DENSITY B. There are scattered areas of fibroglandular density. MAMMOGRAPHY FINDINGS Right: Inner at 3:00, Anterior depth: A skin marker was placed in the area of concern, and no mammographic abnormalities are identified or to account for concern by the patient of pain/tenderness. No suspicious mass, asymmetry, microcalcification, or other abnormality seen. Right: Lower Outer at 8:00, Anterior depth: A skin marker was placed in the area of concern, and no mammographic abnormalities are identified or to account for concern by the patient of pain/tenderness. No suspicious mass, asymmetry, microcalcification, or other abnormality seen. Left: An asymmetry is unchanged on mammogram dating back to at least 03/22/2021, suggestive of a benign etiology. There are no suspicious masses, calcifications, or other findings in the breast. ULTRASOUND FINDINGS Right: Inner at 3:00, 4 cm from nipple: Underlying the surface marker, there is no sonographic abnormality to account for concern by the patient of pain/tenderness. Right: Lower Outer at 8:00, 6 cm from nipple: Underlying the surface marker, there is no sonographic abnormality to account for concern by the patient of pain/tenderness. IMPRESSION: Right * No evidence of malignancy. Left * No evidence of malignancy with benign findings. RECOMMENDATIONS Right * Clinical follow-up is recommended, and further management of palpable abnormalities or other focal signs or symptoms should be based on the results of clinical evaluation. If palpable abnormality or other concerning symptom persists or progresses, further clinical evaluation should be considered. Bilateral * Annual screening mammography. COMMENTS: Findings and recommendations were conveyed to the patient during today's evaluation. OVERALL ASSESSMENT CATEGORY BI-RADS-2: Benign. The [employer] recommends annual screening mammography beginning at age 40 for women with average risk of breast cancer. ELECTRONICALLY SIGNED: Brunilda Servin M.D. on 11/14/2025 at 02:15:22 PM PT Interpreting Station ID: [id number]
== END ==
LOC: MAMMO 12:45
PROVIDERS: PCP Family Medicine; Referring Provider Family Medicine; Visit Provider Family Medicine
DX: N64.4 Mastodynia (principal); Z98.890 Other specified postprocedural states
CPT/HCPCS: 76642; 77066; G0279